=== PATIENT | male | born 1955 | race Caucasian/White ===

== ENCOUNTER 2022-09-06 07:51 | Inpatient (IN) | payer MEDICARE ==
[2022-09-06] MEDS ORDERED: SODIUM CHLORIDE 0.9% 1,000 ML IV STA (08:07)
[2022-09-06] MEDS ORDERED: SODIUM CHLORIDE 0.9% 500 ML 500 ML IV STA (08:07)
[2022-09-06] MEDS ORDERED: ONDANSETRON 4 MG/2 ML VIAL IVP STA (08:07)
[2022-09-06 08:29] LABS: Basophils % (A) 1 %; Eosinophils # (A) 0.1 k/uL (0-0.7); Eosinophils % (A) 1 %; HCT 39.6 % (39.0-53.0); HGB 14.2 gm/dL (13.0-17.5); Lymphocytes # (A) 1.5 k/uL (1.0-4.8); Lymphocytes % (A) 35 %; MCH 30.9 pg (25.0-35.0); MCHC 35.8 g/dL (31.0-37.0); MCV 86.3 fL (80.0-100.0); Mean Platelet Volume 8.5; Monocytes # (A) 0.4 k/uL (0-1.0); Monocytes % (A) 9 %; Neutrophils # (A) 2.2 k/uL (1.3-7.7); Neutrophils % (A) 51 %; Platelet Count 149 k/uL (150-450); RBC 4.59 m/uL (4.30-5.90); RDW 12.5 % (11.5-15.5); WBC 4.3 k/uL (3.8-10.6)
--- NOTE | 2022-09-06 08:52 | ED ---
General Adult HPI - General Chief complaint: Nausea/Vomiting/Diarrhea Stated complaint: Diarrhea, bodyaches Time Seen by Provider: 09/06/22 07:55 Source: patient, EMS, RN notes reviewed, old records reviewed Mode of arrival: EMS Limitations: no limitations - History of Present Illness Initial comments: This is a 67-year-old male who presents to the emergency department complaining that for the last 5-7 days he has been extremely nauseous and has a achiness in the epigastric region. Patient states he has had no vomiting. Patient states she's had 3 days of diarrhea. Patient denies any antibiotic use. Patient denies any chest pain or difficulty breathing. Patient denies any recent fever chills or cough. Patient denies any dysuria hematuria urinary frequency. Patient denies any tenderness to the abdomen on palpation. Patient denies any back pain. Patient denies lightheadedness or dizziness but he does feel extremely weak since he has not been eating for the last week and he feels as though is dehydrated. - Related Data Home Medications Medication Instructions Recorded Confirmed Escitalopram [Lexapro] 20 mg PO DAILY 09/06/22 09/06/22 Lisinopril-Hctz 20-25 mg 1 tab PO DAILY 09/06/22 09/06/22 [Zestoretic 20-25] Metoprolol Succinate [Metoprolol 25 mg PO DAILY 09/06/22 09/06/22 Succinate ER] Pregabalin 225 mg PO BID 09/06/22 09/06/22 oxyCODONE-APAP 5-325MG [Percocet 1 tab PO TID PRN 09/06/22 09/06/22 5-325 mg] Allergies Allergy/AdvReac Type Severity Reaction Status Date / Time No Known Allergies Allergy Verified 09/06/22 11:36 Review of Systems ROS Statement: Those systems with pertinent positive or pertinent negative responses have been documented in the HPI. ROS Other: All systems not noted in ROS Statement are negative. Past Medical History Past Medical History: Diabetes Mellitus, Hypertension Past Surgical History: Cholecystectomy, Hernia Repair General Exam - General Exam Comments Initial Comments: GENERAL: Patient is well-developed and well-nourished. Patient is nontoxic and well- hydrated and is in mild distress. ENT: Neck is soft and supple. No significant lymphadenopathy is noted. Oropharynx is clear. Dry mucous membranes. Neck has full range of motion without eliciting any pain. EYES: The sclera were anicteric and conjunctiva were pink and moist. Extraocular movements were intact and pupils were equal round and reactive to light. Eyelids were unremarkable. PULMONARY: Unlabored respirations. Good breath sounds bilaterally. No audible rales rhonchi or wheezing was noted. CARDIOVASCULAR: There is a regular rate and rhythm without any murmurs gallops or rubs. ABDOMEN: Minimal tenderness in the epigastric region SKIN: Skin is clear with no lesions or rashes and otherwise unremarkable. NEUROLOGIC: Patient is alert and oriented x3. Cranial nerves II through XII are grossly intact. Motor and sensory are also intact. Normal speech, volume and content. Symmetrical smile. MUSCULOSKELETAL: Normal extremities with adequate strength and full range of motion. No lower extremity swelling or edema. No calf tenderness. LYMPHATICS: No significant lymphadenopathy is noted PSYCHIATRIC: Normal psychiatric evaluation. Limitations: no limitations Course Vital Signs 09/06/22 09/06/22 09/06/22 07:55 08:18 10:00 Temperature 98.9 F Pulse Rate 62 64 62 Respiratory 22 18 18 Rate Blood Pressure 166/75 166/75 169/81 O2 Sat by Pulse 99 99 99 Oximetry 09/06/22 09/06/22 11:00 12:00 Temperature Pulse Rate 56 L 57 L Respiratory 18 20 Rate Blood Pressure 145/75 166/68 O2 Sat by Pulse 98 97 Oximetry Medical Decision Making - Medical Decision Making EKG interpreted by me. EKG shows sinus pancreatitis beats per minute GA interval 170 QRS is under 20 QT intervals 459 QTC is 452. Patient's EKG shows no ST segment elevation or depression. I interpret chest x-ray shows no acute abnormality. I interpret the computed tomography scan. There is some colitis noted on the CAT scan. I went back in and be interviewed the patient he continued to be ingest as much discomfort as he was when he arrived. I spoke with Dr. Jacques agreed to admit the patient to the patient wrote admit orders I consulted Dr. Snyder for colitis. - Lab Data Result diagrams: 09/06/22 08:15 09/06/22 08:15 Lab Results 09/06/22 09/06/22 09/06/22 Range/Units 08:15 08:15 08:15 WBC 4.3 (3.8-10.6) k/uL RBC 4.59 (4.30-5.90) m/uL Hgb 14.2 (13.0-17.5) gm/dL Hct 39.6 (39.0-53.0) % MCV 86.3 (80.0-100.0) fL MCH 30.9 (25.0-35.0) pg MCHC 35.8 (31.0-37.0) g/dL RDW 12.5 (11.5-15.5) % Plt Count 149 L (150-450) k/uL MPV 8.5 Neutrophils % 51 % Lymphocytes % 35 % Monocytes % 9 % Eosinophils % 1 % Basophils % 1 % Neutrophils # 2.2 (1.3-7.7) k/uL Lymphocytes # 1.5 (1.0-4.8) k/uL Monocytes # 0.4 (0-1.0) k/uL Eosinophils # 0.1 (0-0.7) k/uL Basophils # 0.0 (0-0.2) k/uL Sodium 141 (137-145) mmol/L Potassium 2.7 L* (3.5-5.1) mmol/L Chloride 111 H (98-107) mmol/L Carbon Dioxide 21 L (22-30) mmol/L Anion Gap 9 mmol/L BUN 6 L (9-20) mg/dL Creatinine 0.44 L (0.66-1.25) mg/dL Est GFR (CKD-EPI)AfAm >90 (>60 ml/min/1.73 sqM) Est GFR (CKD-EPI)NonAf >90 (>60 ml/min/1.73 sqM) Glucose 199 H (74-99) mg/dL Plasma Lactic Acid Kenny 1.0 (0.7-2.0) mmol/L Calcium 7.1 L (8.4-10.2) mg/dL Total Bilirubin 0.7 (0.2-1.3) mg/dL AST 16 L (17-59) U/L ALT 15 (4-49) U/L Alkaline Phosphatase 55 (38-126) U/L Troponin I (0.000-0.034) ng/mL Total Protein 5.8 L (6.3-8.2) g/dL Albumin 3.5 (3.5-5.0) g/dL Amylase 45 (30-110) U/L Lipase 160 (23-300) U/L 09/06/22 Range/Units 08:15 WBC (3.8-10.6) k/uL RBC (4.30-5.90) m/uL Hgb (13.0-17.5) gm/dL Hct (39.0-53.0) % MCV (80.0-100.0) fL MCH (25.0-35.0) pg MCHC (31.0-37.0) g/dL RDW (11.5-15.5) % Plt Count (150-450) k/uL MPV Neutrophils % % Lymphocytes % % Monocytes % % Eosinophils % % Basophils % % Neutrophils # (1.3-7.7) k/uL Lymphocytes # (1.0-4.8) k/uL Monocytes # (0-1.0) k/uL Eosinophils # (0-0.7) k/uL Basophils # (0-0.2) k/uL Sodium (137-145) mmol/L Potassium (3.5-5.1) mmol/L Chloride (98-107) mmol/L Carbon Dioxide (22-30) mmol/L Anion Gap mmol/L BUN (9-20) mg/dL Creatinine (0.66-1.25) mg/dL Est GFR (CKD-EPI)AfAm (>60 ml/min/1.73 sqM) Est GFR (CKD-EPI)NonAf (>60 ml/min/1.73 sqM) Glucose (74-99) mg/dL Plasma Lactic Acid Kenny (0.7-2.0) mmol/L Calcium (8.4-10.2) mg/dL Total Bilirubin (0.2-1.3) mg/dL AST (17-59) U/L ALT (4-49) U/L Alkaline Phosphatase (38-126) U/L Troponin I 0.013 (0.000-0.034) ng/mL Total Protein (6.3-8.2) g/dL Albumin (3.5-5.0) g/dL Amylase (30-110) U/L Lipase (23-300) U/L Disposition Clinical Impression: Acute colitis, Hypokalemia, Hypocalcemia Disposition: ADMITTED IP TO THIS HOSP Referrals: Blas Lamas DO [Primary Care Provider] - 1-2 days Time of Disposition: 12:22
[2022-09-06 08:53] LABS: Albumin 3.5 g/dL (3.5-5.0); Amylase 45 U/L (30-110); Chloride 111 mmol/L (98-107); Glucose 199 mg/dL (74-99); Total Protein 5.8 g/dL (6.3-8.2)
[2022-09-06 08:54] LABS: ALT 15 U/L (4-49); AST 16 U/L (17-59); African American GFR (CKD) >90 (>60 ml/min/1.73 sqM); Alkaline Phosphatase 55 U/L (38-126); Anion Gap 9 mmol/L; Blood Urea Nitrogen 6 mg/dL (9-20); Calcium 7.1 mg/dL (8.4-10.2); Carbon Dioxide 21 mmol/L (22-30); Lipase 160 U/L (23-300); Non-African American GFR(CKD) >90 (>60 ml/min/1.73 sqM); Sodium 141 mmol/L (137-145); Total Bilirubin 0.7 mg/dL (0.2-1.3)
--- NOTE | 2022-09-06 09:06 | XR ---
EXAMINATION TYPE: XR chest 2V DATE OF EXAM: 09/06/2022 COMPARISON: NONE HISTORY: Difficulty in breathing. TECHNIQUE: Frontal and two lateral views of the chest are obtained. FINDINGS: Slightly elevated left hemidiaphragm. There is no focal air space opacity, pleural effusion , or pneumothorax seen. The cardiac silhouette size is within normal limits. The osseous structure s are intact. IMPRESSION: No acute cardiopulmonary process.
[2022-09-06 09:24] LABS: Potassium 2.7 mmol/L (3.5-5.1)
[2022-09-06] MEDS ORDERED: POTASSIUM CHLORIDE ER 20 MEQ TAB.ER PO STA (09:48)
[2022-09-06] MEDS ORDERED: POTASSIUM CHLORIDE 20 MEQ in WATER FOR INJECTION 1 100ML.BAG IVPB STA (09:48)
[2022-09-06] MEDS ORDERED: HYDROmorphone 0.5 MG/0.5 ML SYRINGE IVP STA (10:00)
--- NOTE | 2022-09-06 10:56 | CT ---
EXAMINATION TYPE: CT abdomen pelvis w con DATE OF EXAM: 09/06/2022 COMPARISON: None. HISTORY: Abdominal pain since Monday CT DLP: 1824.5 mGycm, Automated Exposure Control for Dose Reduction was Utilized. CONTRAST: CT scan of the abdomen and pelvis is performed without oral and with IV Contrast, patient injected wi th 100 mL of Isovue 300. FINDINGS: LUNG BASES: No significant abnormality is appreciated. LIVER/GB: Gallbladder not seen and presumed surgically absent. Visualized liver is heterogeneously hy podense consistent with diffuse fatty infiltration. PANCREAS: No significant abnormality is seen. SPLEEN: No significant abnormality is seen. ADRENALS: No significant abnormality is seen. KIDNEYS: No significant abnormality is seen. BOWEL: Small to moderate size hiatal hernia is present. Suboptimal evaluation of bowel without enteri c contrast. No suspicious small or large bowel dilatation is seen. Appendix appears within normal kearney its for base of cecum. Mild to moderate wall thickening in the right and transverse colon extending i nto the left colon and sigmoid colon and rectum in contiguous fashion. No significant surrounding fat stranding. No adjacent free air. PROSTATE/SEMINAL VESICLES: No gross abnormality seen. LYMPH NODES: No greater than 1cm abdominal or pelvic lymph nodes are appreciated. OSSEOUS STRUCTURES: Moderate axial joint space loss in both hips. OTHER: Mild to moderate calcified plaque of the aorta extends into branch vessels. Small fat-containi ng umbilical hernia. Small fat-containing left inguinal hernia. IMPRESSION: Probable sbir-ko-buabxalj diffuse long segment colitis versus product of poor distention. Findings present from cecum to rectum. Differential includes infectious, ischemic, and/or inflammato ry etiologies.
[2022-09-06] MEDS ORDERED: SODIUM CHLORIDE 0.9% 1,000 ML IV ONE (12:23)
[2022-09-06] MEDS ORDERED: CALCIUM CHLORIDE 100 MG/ML 10 ML SYRINGE IVP STA (12:26)
[2022-09-06] MEDS ORDERED: ONDANSETRON 8 MG in SODIUM CHLORIDE 0.9% 50 ML IVPB PRN (12:43)
[2022-09-06] MEDS ORDERED: ONDANSETRON 4 MG in SODIUM CHLORIDE 0.9% 50 ML IVPB ONE (12:44)
--- NOTE | 2022-09-06 12:50 | P.HPIM ---
History of Present Illness This is a pleasant 67 years old male with past medical history of hypertension, depression Presents because of abdominal discomfort with nausea 7 days. Patient main problem and symptoms is severe nausea, he did not throw up but he cannot eat anything, associated with epigastric discomfort but he does not want to describe it as pain and on examination does not look tender. Patient also had a flu shot about a week ago. History is that he has diarrhea about 4 times per day, he has very poor appetite and he has not been eating anything over the last 4 days other than drinking water and gatorade drinks. He denies any blood in stool and he still is not black. He denies chest pain, no dyspnea but he has cough with congested phlegm greenish in color. He denies any urinary symptoms, no dysuria urgency, he has some mild headache but no dizziness weakness or numbness He smokes about 1.5 pack per day however he has not smoked for the last 2 weeks, he was counseled to quit and he agrees, he does not need nicotine patch, no al cohol or illicit drugs. His vitals looks stable and patient is afebrile Labs showing unremarkable CBC except for very mild low platelets 149, Sodium normal but potassium low at 2.7, creatinine 0.4. Liver enzymes not elevated. Lipase is normal. Lactic acid is normal 1.0. CT of the abdomen and pelvis with contrast: Gallbladder is surgically absent, liver showing diffuse fatty infiltration is suspected. Small to moderate size hiatal hernia no suspicion of small or large bowel dilatation. Mild to moderate wall thickening in the right and transverse colon extending into the left colon and sigmoid colon and rectum and contagious fashion. No surrounding fat stranding. Possible mild to moderate diffuse long segment colitis, from the cecum to the rectum. Chest x-ray: No acute process. EKG showing sinus bradycardia at [address]-T changes The emergency room received IV fluids, Zofran and potassium replacement. Review of Systems Review of systems CONSTITUTIONAL: No fever, no malaise, no fatigue. HEENT: No recent visual problems or hearing problems. Denied any sore throat. CARDIOVASCULAR: No orthopnea, PND, no palpitations, no syncope. PULMONARY: No shortness of breath, no cough, no hemoptysis. GASTROINTESTINAL:no vomiting, no abdominal pain. Normoactive bowel sounds. NEUROLOGICAL: No headaches, no weakness, no numbness. HEMATOLOGICAL: Denies any bleeding or petechiae. GENITOURINARY: Denies any burning micturition, frequency, or urgency. MUSCULOSKELETAL/RHEUMATOLOGICAL: Denies any joint pain, swelling, or any muscle pain. ENDOCRINE: Denies any polyuria or polydipsia. Past Medical History Past Medical History: Diabetes Mellitus, Hypertension Past Surgical History: Cholecystectomy, Hernia Repair Medications and Allergies Home Medications Medication Instructions Recorded Confirmed Type Escitalopram [Lexapro] 20 mg PO DAILY 09/06/22 09/06/22 History Lisinopril-Hctz 20-25 mg 1 tab PO DAILY 09/06/22 09/06/22 History [Zestoretic 20-25] Metoprolol Succinate [Metoprolol 25 mg PO DAILY 09/06/22 09/06/22 History Succinate ER] Pregabalin 225 mg PO BID 09/06/22 09/06/22 History oxyCODONE-APAP 5-325MG [Percocet 1 tab PO TID PRN 09/06/22 09/06/22 History 5-325 mg] Allergies Allergy/AdvReac Type Severity Reaction Status Date / Time No Known Allergies Allergy Verified 09/06/22 11:36 Physical Exam Vitals: Vital Signs Temp Pulse Resp BP Pulse Ox 09/06/22 12:00 57 L 20 166/68 97 09/06/22 11:00 56 L 18 145/75 98 09/06/22 10:00 62 18 169/81 99 09/06/22 08:18 64 18 166/75 99 09/06/22 07:55 98.9 F 62 22 166/75 99 Intake and Output 09/05/22 09/06/22 09/06/22 22:59 06:59 14:59 Other: Weight 122.47 kg GENERAL: The patient is alert and oriented x3, not in any acute distress. Well developed, well nourished. HEENT: Pupils are round and equally reacting to light. EOMI. No scleral icterus. No conjunctival pallor. Normocephalic, atraumatic. No pharyngeal erythema. No thyromegaly. CARDIOVASCULAR: S1 and S2 present. No murmurs, rubs, or gallops. PULMONARY: Chest is clear to auscultation, no wheezing or crackles. -ABDOMEN: Soft, epigastric discomfort, nondistended, normoactive bowel sounds. No palpable organomegaly. MUSCULOSKELETAL: No joint swelling or deformity. EXTREMITIES: No cyanosis, clubbing, or pedal edema. NEUROLOGICAL: Gross neurological examination did not reveal any focal deficits. SKIN: No rashes. no petechiae. Results CBC & Chem 7: 09/06/22 08:15 09/06/22 08:15 Labs: Abnormal Lab Results - Last 24 Hours (Table) 09/06/22 09/06/22 Range/Units 08:15 08:15 Plt Count 149 L (150-450) k/uL Potassium 2.7 L* (3.5-5.1) mmol/L Chloride 111 H (98-107) mmol/L Carbon Dioxide 21 L (22-30) mmol/L BUN 6 L (9-20) mg/dL Creatinine 0.44 L (0.66-1.25) mg/dL Glucose 199 H (74-99) mg/dL Calcium 7.1 L (8.4-10.2) mg/dL AST 16 L (17-59) U/L Total Protein 5.8 L (6.3-8.2) g/dL Assessment and Plan Assessment: Mild to moderate diffuse colitis from the cecum to the rectum, suspicious for acute gastroenteritis Recurrent nausea without vomiting, with diarrhea secondary to above Hypertension History of depression, not an active issue Plan: Continue with IV hydration Continue with Zofran as needed and symptomatic treatment Bowel rest GI team consult Hold hydrochlorothiazide for hypokalemia
[2022-09-06] MEDS ORDERED: Magnesium Replacement Protocol 1 EACH MISC MISCELLANE PRN (12:53)
[2022-09-06] MEDS ORDERED: Potassium Replacement Protocol 1 EACH MISC MISCELLANE PRN (12:53)
[2022-09-06] MEDS ORDERED: ONDANSETRON 4 MG/2 ML VIAL IVP ONE (13:00)
[2022-09-06] MEDS: PANTOPRAZOLE 40 MG/10 ML VIAL IVP SCH (13:30)
[2022-09-06] MEDS: DEXTROSE 5%-0.9% NACL 1,000 ML IV SCH (14:00)
--- NOTE | 2022-09-06 16:07 | P.CONS ---
History of Present Illness - Reason for Consult Consult date: 09/06/22 severe nausea Requesting physician: Aldo E Sheet - Chief Complaint nausea, diarrhea - History of Present Illness This is a pleasant 67-year-old male who presented to the emergency department today with complaints of nausea and diarrhea for the last 5 days duration. Mary ent states he feels as though he is dehydrated. He is only drinking one bottle of Gatorade today. He is having loose nonbloody bowel movements up to 2-3 a day. Patient states he had none today. He has nausea but no vomiting. He states he has had chills and cold sweats at home. Also states that his was recently ill at home prior to him with cold sweats body aches fatigue and decreased appetite. Patient also is stating that he has a cough with a green sputum. Patient is afebrile. Patient had a CT of the abdomen and pelvis with contrast that showed probable mild to moderate diffuse long segment colitis versus product of poor distention. Findings present from cecum to rectum. Dif ferential includes infectious, ischemic and/or inflammatory etiologies. labs WBC 4.3 hemoglobin 14 hematocrit 39 platelet count 149,000 sodium 141 potassium 2.7 BUN 6 creatinine 0.4 glucose 199 total bilirubin 0.7 AST 16 ALT 15 alkaline phosphatase 55 amylase 45 lipase 160 Review of Systems REVIEW OF SYSTEMS: CARDIOPULMONARY: No chest pain or shortness of breath. cough with green sputum. Gastrointestinal: No abdominal pain or cramping. Patient states just overall d oes not feel well, constant nausea without vomiting. diarrhea 5 days. No hematemesis, coffee-ground emesis. No rectal bleeding, or melena. GENITOURINARY: No dysuria or hematuria. MUSCULOSKELETAL: Reports normal range of motion. SKIN: No rashes. No jaundice. ENDOCRINE: No chills, fevers. No excessive weight gain or loss. No polydipsia or polyuria. PSYCHIATRIC: Unremarkable. NEUROLOGY: No change in mental status. Denies dizziness, headache. ENT: Vision unremarkable. CONSTITUTIONAL: No recent weight loss. No fever, chills, night sweats. Past Medical History Past Medical History: Diabetes Mellitus, Hypertension Past Surgical History: Cholecystectomy, Hernia Repair Medications and Allergies Home Medications Medication Instructions Recorded Confirmed Type Escitalopram [Lexapro] 20 mg PO DAILY 09/06/22 09/06/22 History Lisinopril-Hctz 20-25 mg 1 tab PO DAILY 09/06/22 09/06/22 History [Zestoretic 20-25] Metoprolol Succinate [Metoprolol 25 mg PO DAILY 09/06/22 09/06/22 History Succinate ER] Pregabalin 225 mg PO BID 09/06/22 09/06/22 History oxyCODONE-APAP 5-325MG [Percocet 1 tab PO TID PRN 09/06/22 09/06/22 History 5-325 mg] Allergies Allergy/AdvReac Type Severity Reaction Status Date / Time No Known Allergies Allergy Verified 09/06/22 11:36 Physical Exam Vitals: Vital Signs Temp Pulse Resp BP Pulse Ox 09/06/22 12:00 57 L 20 166/68 97 09/06/22 11:00 56 L 18 145/75 98 09/06/22 10:00 62 18 169/81 99 09/06/22 08:18 64 18 166/75 99 09/06/22 07:55 98.9 F 62 22 166/75 99 Intake and Output 09/05/22 09/06/22 09/06/22 22:59 06:59 14:59 Other: Weight 122.47 kg General appearance: The patient is alert, oriented, appears in no acute distress. HET: Head is normocephalic and atraumatic. Conjunctiva pink. Sclera anicteric. Neck: Supple without lymphadenopathy. Trachea midline. Heart: S1 S2. Regular rate and rhythm. Lungs: Clear to auscultation. Abdomen: Soft, nontender, nondistended with bowel sounds. No guarding or rigidity. Skin: No rashes. No jaundice. Extremities: Normal skin color and turgor. No pedal edema. Neurological: No focal deficits. Alert and oriented x3. Results CBC & Chem 7: 09/06/22 08:15 09/06/22 08:15 Labs: Abnormal Lab Results - Last 24 Hours (Table) 09/06/22 09/06/22 Range/Units 08:15 08:15 Plt Count 149 L (150-450) k/uL Potassium 2.7 L* (3.5-5.1) mmol/L Chloride 111 H (98-107) mmol/L Carbon Dioxide 21 L (22-30) mmol/L BUN 6 L (9-20) mg/dL Creatinine 0.44 L (0.66-1.25) mg/dL Glucose 199 H (74-99) mg/dL Calcium 7.1 L (8.4-10.2) mg/dL AST 16 L (17-59) U/L Total Protein 5.8 L (6.3-8.2) g/dL Assessment and Plan (1) Gastroenteritis Narrative/Plan: XT 7-year-old male who presented with severe nausea, no vomiting and diarrhea for last 5 days duration with increased weakness and fatigue. Patient with decreased appetite, diarrhea 3-4 times a day nonbloody. Patient states he had not been taking in much liquids only about a bottle of Gatorade today. Patient was noted to have a potassium of 2.7 on admission which was replaced. Patient's was also sick about one week prior with similar symptoms other than the diarrhea. Patient also stating that he has cough with sputum. Patient was not initially tested for excuse me Rice virus however later patient was tested and is now coming back as positive PCR. Likelihood diarrhea and nausea is related to COVID-19 virus, patient likely has a viral gastroenteritis. Continue IV hydration, repeat potassium replacement, patient can have clear liquid diet. Antiemetics as needed. Current Visit: Yes Status: Acute Code(s): K52.9 - NONINFECTIVE GASTROENTERITIS AND COLITIS, UNSPECIFIED SNOMED Code(s): 39940098 (2) Diarrhea Current Visit: Yes Status: Acute Code(s): R19.7 - DIARRHEA, UNSPECIFIED SNOMED Code(s): 04064083 (3) Coronavirus infection Current Visit: Yes Status: Acute Code(s): B34.2 - CORONAVIRUS INFECTION, UNSPECIFIED SNOMED Code(s): 642301395 (4) Hypokalemia Current Visit: Yes Status: Acute Code(s): E87.6 - HYPOKALEMIA SNOMED Code(s): 18086910 Plan: 1. Continue symptomatic and supportive care 2. Antiemetics as needed 3. C. diff stool test ordered 4. Stool cultures ordered 5. Patient may have clear liquid diet 6. Replace potassium per protocol 7. IV hydration 8. No plans on endoscopic evaluation Thank you for this consultation, we will continue to follow. Dr. Rita Snyder I agree with the dictator's note, documented as a scribe by Zoie Ambriz
[2022-09-06] MEDS ORDERED: ONDANSETRON 4 MG/2 ML VIAL IVP PRN (17:00)
[2022-09-06] MEDS ORDERED: hydrALAZINE HCL 25 MG TAB PO PRN (18:10)
[2022-09-06 19:07] LABS: Magnesium 1.8 mg/dL (1.6-2.3); Potassium 3.2 mmol/L (3.5-5.1)
[2022-09-06] MEDS: PREGABALIN 75 MG CAP PO SCH (21:39)
[2022-09-06] MEDS: HEPARIN SODIUM,PORCINE/PF 5,000 UNIT/0.5 ML SYRINGE SQ SCH (21:39)
[2022-09-06] MEDS: oxyCODONE-APAP 5-325MG 1 EACH TAB PO PRN (21:42)
[2022-09-07] MEDS: DEXTROSE 5%-0.9% NACL 1,000 ML IV SCH (01:40)
[2022-09-07] MEDS ORDERED: DEXTROSE 50% SYRINGE 50 ML IVP PRN ×2 (06:31)
[2022-09-07] MEDS ORDERED: metFORMIN 500 MG TAB PO SCH (07:30)
[2022-09-07 07:52] LABS: Glucose,Whole Blood 174 mg/dL (70-110)
[2022-09-07] MEDS: PANTOPRAZOLE 40 MG/10 ML VIAL IVP SCH (08:25)
[2022-09-07] MEDS: HEPARIN SODIUM,PORCINE/PF 5,000 UNIT/0.5 ML SYRINGE SQ SCH ×2 (08:25→20:22)
[2022-09-07] MEDS: PREGABALIN 75 MG CAP PO SCH ×2 (08:26→20:21)
[2022-09-07] MEDS: METOPROLOL SUCCINATE (ER) 25 MG TAB.ER.24H PO SCH (08:26)
[2022-09-07] MEDS: INSULIN ASPART (NovoLOG) 100 UNIT/ML VIAL SQ SCH ×4 (08:26→21:08)
[2022-09-07] MEDS: amLODIPine 5 MG TAB PO SCH (08:26)
[2022-09-07 08:42] LABS: Basophils # (A) 0.03 X 10*3/uL (0.00-0.10); Basophils % (A) 0.5 %; Eosinophils # (A) 0.04 X 10*3/uL (0.04-0.35); Eosinophils % (A) 0.7 %; HCT 38.4 % (39.6-50.0); HGB 13.5 g/dL (13.0-17.0); Immature Grans, Automated 0.7 %; Lymphocytes # (A) 2.15 X 10*3/uL (0.90-5.00); Lymphocytes % (A) 39.2 %; MCH 30.1 pg (27.0-32.0); MCHC 35.2 g/dL (32.0-37.0); MCV 85.7 fL (80.0-97.0); Mean Platelet Volume 11.3 fL (9.5-12.2); Monocytes # (A) 0.65 X 10*3/uL (0.20-1.00); Monocytes % (A) 11.8 %; NRBC Per 100 WBC 0 /100 WBCS (0.0-0.0); Neutrophils # (A) 2.58 X 10*3/uL (1.80-7.70); Neutrophils % (A) 47.1 %; Platelet Count 174 X 10*3/uL (140-440); RBC 4.48 X 10*6/uL (4.40-5.60); RDW 12.7 % (11.5-14.5); WBC 5.49 X 10*3/uL (4.50-10.00)
[2022-09-07] MEDS ORDERED: ESCITALOPRAM 20 MG TAB PO SCH (09:00)
[2022-09-07] MEDS ORDERED: lisinopriL 20 MG TAB PO SCH (09:00)
[2022-09-07 09:02] LABS: Magnesium 1.7 mg/dL (1.5-2.4)
[2022-09-07 10:05] LABS: African American GFR (CKD) 118.9 (60.0-200.0); Anion Gap 12.1 mmol/L (10.00-18.00); BUN/Creat Ratio 6.67 Ratio (12.00-20.00); Calcium 8.2 mg/dL (8.7-10.3); Carbon Dioxide 22.9 mmol/L (20.0-27.5); Non-African American GFR(CKD) 102.6 (60.0-200.0); Potassium 2.7 mmol/L (3.5-5.5)
[2022-09-07] MEDS ORDERED: MAGNESIUM SULFATE-D5W PMX 1 GM in DEXTROSE/WATER 1 100ML.BAG IVPB ONE (10:12)
[2022-09-07] MEDS: POTASSIUM CHLORIDE ER 20 MEQ TAB.ER PO SCH ×5 (10:53→20:21)
[2022-09-07] MEDS ORDERED: lisinopriL 20 MG TAB PO STA (11:30)
--- NOTE | 2022-09-07 11:37 | P.PN ---
Subjective This is a pleasant 67 years old male with past medical history of hypertension, depression Presents because of abdominal discomfort with nausea 7 days. Patient main problem and symptoms is severe nausea, he did not throw up but he cannot eat anything, associated with epigastric discomfort but he does not want to describe it as pain and on examination does not look tender. Patient also had a flu shot about a week ago. History is that he has diarrhea about 4 times per day, he has very poor appetite and he has not been eating anything over the last 4 days other than drinking water and gatorade drinks. He denies any blood in stool and he still is not black. He denies chest pain, no dyspnea but he has cough with congested phlegm greenish in color. He denies any urinary symptoms, no dysuria urgency, he has some mild headache but no dizziness weakness or numbness He smokes about 1.5 pack per day however he has not smoked for the last 2 weeks, he was counseled to quit and he agrees, he does not need nicotine patch, no alcohol or illicit drugs. His vitals looks stable and patient is afebrile Labs showing unremarkable CBC except for very mild low platelets 149, Sodium normal but potassium low at 2.7, creatinine 0.4. Liver enzymes not elevated. Lipase is normal. Lactic acid is normal 1.0. CT of the abdomen and pelvis with contrast: Gallbladder is surgically absent, liver showing diffuse fatty infiltration is suspected. Small to moderate size hiatal hernia no suspicion of small or large bowel dilatation. Mild to moderate wall thickening in the right and transverse colon extending into the left colon and sigmoid colon and rectum and contagious fashion. No surrounding fat stranding. Possible mild to moderate diffuse long segment colitis, from the cecum to the rectum. Chest x-ray: No acute process. EKG showing sinus bradycardia at [address]-T changes The emergency room received IV fluids, Zofran and potassium replacement. 09/07/2022 Patient has little nausea this morning with no vomiting, his abdomen is soft and nontender today. He has some epigastric discomfort yesterday which is is down today. He still had diarrhea overnight, related to his colic gastroenteritis. He is currently on low fiber diet, low-fat diet and we will keep monitoring. Cholestyramine is added. His hemoglobin is A1c and patient informed about his new diagnosis of diabetes. However his on liquid diet, continue with insulin sliding scale. Dietary consults and caser up consult his hypokalemia and hypomagnesemia replaced per protocol Blood pressure elevated, we'll increase his lisinopril 40 mg daily which will help also with hypokalemia. Hydrochlorothiazide is discontinued on admission Objective - Vital Signs Vital signs: Vital Signs Temp 98.9 F 09/06/22 07:55 Pulse 51 L 09/07/22 03:00 Resp 16 09/07/22 03:00 BP 184/86 09/07/22 03:00 Pulse Ox 98 09/07/22 03:00 FiO2 Intake & Output 09/06/22 09/07/22 09/07/22 18:59 06:59 18:59 Weight 122.47 kg 122.47 kg - Exam GENERAL: The patient is alert and oriented x3, not in any acute distress. Well developed, well nourished. HEENT: Pupils are round and equally reacting to light. EOMI. No scleral icterus. No conjunctival pallor. Normocephalic, atraumatic. No pharyngeal erythema. No thyromegaly. CARDIOVASCULAR: S1 and S2 present. No murmurs, rubs, or gallops. PULMONARY: Chest is clear to auscultation, no wheezing or crackles. ABDOMEN: Soft, nontender, nondistended, normoactive bowel sounds. No palpable organomegaly. MUSCULOSKELETAL: No joint swelling or deformity. EXTREMITIES: No cyanosis, clubbing, or pedal edema. NEUROLOGICAL: Gross neurological examination did not reveal any focal deficits. SKIN: No rashes. no petechiae. - Labs CBC & Chem 7: 09/07/22 06:16 09/07/22 06:16 Labs: Abnormal Lab Results - Last 24 Hours (Table) 09/06/22 09/06/22 09/06/22 Range/Units 15:20 18:27 18:27 Hct (39.6-50.0) % Potassium 3.2 L (3.5-5.1) mmol/L BUN (9.0-27.0) mg/dL BUN/Creatinine Ratio (12.00-20.00) Ratio Glucose (70-110) mg/dL POC Glucose (mg/dL) (70-110) mg/dL Hemoglobin A1c 10.0 H (0.0-6.0) % Calcium (8.7-10.3) mg/dL Coronavirus (PCR) Detected A (Not Detectd) 09/07/22 09/07/22 09/07/22 Range/Units 06:16 06:16 07:48 Hct 38.4 L (39.6-50.0) % Potassium 2.7 L* (3.5-5.1) mmol/L BUN 4.0 L (9.0-27.0) mg/dL BUN/Creatinine Ratio 6.67 L (12.00-20.00) Ratio Glucose 181 H (70-110) mg/dL POC Glucose (mg/dL) 174 H (70-110) mg/dL Hemoglobin A1c (0.0-6.0) % Calcium 8.2 L (8.7-10.3) mg/dL Coronavirus (PCR) (Not Detectd) Microbiology - Last 24 Hours (Table) 09/06/22 22:10 Stool Culture - Preliminary Stool Assessment and Plan Assessment: Mild to moderate diffuse colitis from the cecum to the rectum, suspicious for acute gastroenteritis, secondary to covid infection Recurrent nausea without vomiting, with diarrhea secondary to above New-onset diabetes Hypertension History of depression, not an active issue Plan: Continue with IV hydration Continue with Zofran as needed and symptomatic treatment Started as tolerated increase lisinopril to 20 mg Patient informed about his new diagnosis of diabetes, that Mika consult caser up consult GI team consult Hold hydrochlorothiazide for hypokalemia
[2022-09-07 11:51] LABS: Glucose,Whole Blood 240 mg/dL (70-110)
--- NOTE | 2022-09-07 12:22 | P.PN ---
Subjective Progress Note Date: 09/07/22 Principal diagnosis: Gastroenteritis This is a pleasant 67-year-old male who presented to the emergency department today with complaints of nausea and diarrhea for the last 5 days duration. Patient states he feels as though he is dehydrated. He is only drinking one bottle of Gatorade today. He is having loose nonbloody bowel movements up to 2- 3 a day. Patient states he had none today. He has nausea but no vomiting. He states he has had chills and cold sweats at home. Also states that his was recently ill at home prior to him with cold sweats body aches fatigue and decreased appetite. Patient also is stating that he has a cough with a green sputum. Patient is afebrile. Patient had a CT of the abdomen and pelvis with contrast that showed probable mild to moderate diffuse long segment colitis versus product of poor distention. Findings present from cecum to rectum. Differential includes infectious, ischemic and/or inflammatory etiologies. 09/07/2022. Patient seen and examined his follow-up. States diarrhea has improved he has not had any episodes since yesterday and only one yesterday. Nausea has also improved. He has been tolerating his clear liquid diet and would like to advance. No abdominal pain. Patient did come back positive for COVID-19 infection. Symptoms likely RELATED to underlying virus. Stool C. diff negative, stool cultures pending. The patient is still hypokalemic with a potassium of 2.7 being replaced per protocol. Objective - Vital Signs Vital signs: Vital Signs Temp 98.9 F 09/06/22 07:55 Pulse 62 09/07/22 11:57 Resp 16 09/07/22 03:00 BP 146/68 09/07/22 11:57 Pulse Ox 98 09/07/22 03:00 FiO2 Intake & Output 09/06/22 09/07/22 09/07/22 18:59 06:59 18:59 Weight 122.47 kg 122.47 kg - Exam General appearance: The patient is alert, oriented, appears in no acute distress. HET: Head is normocephalic and atraumatic. Conjunctiva pink. Sclera anicteric. Neck: Supple without lymphadenopathy. Abdomen: Soft, nontender, nondistended with bowel sounds. No guarding or ri gidity. Extremities: Normal skin color and turgor. No pedal edema Skin: No rashes, no jaundice Neurological: No focal deficits. Alert and oriented. - Labs CBC & Chem 7: 09/07/22 06:16 09/07/22 06:16 Labs: Abnormal Lab Results - Last 24 Hours (Table) 09/06/22 09/06/22 09/06/22 Range/Units 15:20 18:27 18:27 Hct (39.6-50.0) % Potassium 3.2 L (3.5-5.1) mmol/L BUN (9.0-27.0) mg/dL BUN/Creatinine Ratio (12.00-20.00) Ratio Glucose (70-110) mg/dL POC Glucose (mg/dL) (70-110) mg/dL Hemoglobin A1c 10.0 H (0.0-6.0) % Calcium (8.7-10.3) mg/dL Coronavirus (PCR) Detected A (Not Detectd) 09/07/22 09/07/22 09/07/22 Range/Units 06:16 06:16 07:48 Hct 38.4 L (39.6-50.0) % Potassium 2.7 L* (3.5-5.1) mmol/L BUN 4.0 L (9.0-27.0) mg/dL BUN/Creatinine Ratio 6.67 L (12.00-20.00) Ratio Glucose 181 H (70-110) mg/dL POC Glucose (mg/dL) 174 H (70-110) mg/dL Hemoglobin A1c (0.0-6.0) % Calcium 8.2 L (8.7-10.3) mg/dL Coronavirus (PCR) (Not Detectd) 09/07/22 Range/Units 11:50 Hct (39.6-50.0) % Potassium (3.5-5.1) mmol/L BUN (9.0-27.0) mg/dL BUN/Creatinine Ratio (12.00-20.00) Ratio Glucose (70-110) mg/dL POC Glucose (mg/dL) 240 H (70-110) mg/dL Hemoglobin A1c (0.0-6.0) % Calcium (8.7-10.3) mg/dL Coronavirus (PCR) (Not Detectd) Microbiology - Last 24 Hours (Table) 09/06/22 22:10 Stool Culture - Preliminary Stool Assessment and Plan (1) Gastroenteritis Narrative/Plan: XT 7-year-old male who presented with severe nausea, no vomiting and diarrhea for last 5 days duration with increased weakness and fatigue. Patient with decreased appetite, diarrhea 3-4 times a day nonbloody. Patient states he had not been taking in much liquids only about a bottle of Gatorade today. Patient was noted to have a potassium of 2.7 on admission which was replaced. Patient's was also sick about one week prior with similar symptoms other than the diarrhea. Patient also stating that he has cough with sputum. Patient was not initially tested for excuse me Rice virus however later patient was tested and is now coming back as positive PCR. Likelihood diarrhea and nausea is related to COVID-19 virus, patient likely has a viral gastroenteritis. Continue IV hydration, repeat potassium replacement, patient can have clear liquid diet. Antiemetics as needed. Current Visit: Yes Status: Acute Code(s): K52.9 - NONINFECTIVE GASTROENTERITIS AND COLITIS, UNSPECIFIED SNOMED Code(s): 37602282 (2) Diarrhea Narrative/Plan: Improved Current Visit: Yes Status: Acute Code(s): R19.7 - DIARRHEA, UNSPECIFIED SNOMED Code(s): 70288173 (3) Coronavirus infection Current Visit: Yes Status: Acute Code(s): B34.2 - CORONAVIRUS INFECTION, UNSPECIFIED SNOMED Code(s): 241405608 (4) Hypokalemia Current Visit: Yes Status: Acute Code(s): E87.6 - HYPOKALEMIA SNOMED Code(s): 10847703 Plan: 1. Continue symptomatic and supportive care 2. Antiemetics as needed 3. Diet as tolerated 4. Stool cultures ordered 5. Replace potassium per protocol 6. No plans on endoscopic evaluation Thank you for this consultation, we will continue to follow. Dr. Rita Snyder I agree with the dictator's note, documented as a scribe by Zoie Pond.
[2022-09-07 15:35] LABS: Glucose,Whole Blood 217 mg/dL (70-110)
[2022-09-07] MEDS ORDERED: diphenhydrAMINE 25 MG CAP PO PRN (16:28)
[2022-09-07] MEDS: SODIUM CHLORIDE 0.9% 1,000 ML IV SCH (16:52)
[2022-09-07 17:26] LABS: Magnesium 1.9 mg/dL (1.6-2.3); Potassium 3.3 mmol/L (3.5-5.1)
[2022-09-07 18:38] LABS: Glucose,Whole Blood 230 mg/dL (70-110)
[2022-09-07] MEDS: oxyCODONE-APAP 5-325MG 1 EACH TAB PO PRN (20:21)
[2022-09-07] MEDS: CHOLESTYRAMINE (WITH SUGAR) 4 GM PACKET PO SCH (20:22)
[2022-09-08 06:04] LABS: Glucose,Whole Blood 221 mg/dL (70-110)
[2022-09-08] MEDS: SODIUM CHLORIDE 0.9% 1,000 ML IV SCH ×2 (06:28→11:43)
[2022-09-08] MEDS: INSULIN ASPART (NovoLOG) 100 UNIT/ML VIAL SQ SCH ×2 (06:35→11:42)
[2022-09-08] MEDS ORDERED: lisinopriL 20 MG TAB PO SCH (09:00)
[2022-09-08] MEDS: METOPROLOL SUCCINATE (ER) 25 MG TAB.ER.24H PO SCH (09:09)
[2022-09-08] MEDS: PANTOPRAZOLE 40 MG/10 ML VIAL IVP SCH (09:10)
[2022-09-08] MEDS: PREGABALIN 75 MG CAP PO SCH (09:10)
[2022-09-08] MEDS: amLODIPine 5 MG TAB PO SCH (09:10)
[2022-09-08] MEDS: HEPARIN SODIUM,PORCINE/PF 5,000 UNIT/0.5 ML SYRINGE SQ SCH (09:10)
[2022-09-08] MEDS: CHOLESTYRAMINE (WITH SUGAR) 4 GM PACKET PO SCH (09:11)
[2022-09-08] MEDS ORDERED: LINAGLIPTIN 5 MG TABLET PO SCH (11:00)
[2022-09-08 11:01] LABS: African American GFR (CKD) 118.9 (60.0-200.0); Anion Gap 11.5 mmol/L (10.00-18.00); BUN/Creat Ratio 6.17 Ratio (12.00-20.00); Blood Urea Nitrogen 3.7 mg/dL (9.0-27.0); Calcium 8.4 mg/dL (8.7-10.3); Carbon Dioxide 25.5 mmol/L (20.0-27.5); Non-African American GFR(CKD) 102.6 (60.0-200.0); Potassium 3.2 mmol/L (3.5-5.5)
[2022-09-08 11:10] VITALS: RESP 18
[2022-09-08] MEDS ORDERED: POTASSIUM CHLORIDE ER 20 MEQ TAB.ER PO STA (11:15)
--- NOTE | 2022-09-08 11:17 | P.PN ---
Subjective Progress Note Date: 09/08/22 Principal diagnosis: Gastroenteritis This is a pleasant 67-year-old male who presented to the emergency department today with complaints of nausea and diarrhea for the last 5 days duration. Patient states he feels as though he is dehydrated. He is only drinking one bottle of Gatorade today. He is having loose nonbloody bowel movements up to 2- 3 a day. Patient states he had none today. He has nausea but no vomiting. He states he has had chills and cold sweats at home. Also states that his was recently ill at home prior to him with cold sweats body aches fatigue and decreased appetite. Patient also is stating that he has a cough with a green sputum. Patient is afebrile. Patient had a CT of the abdomen and pelvis with contrast that showed probable mild to moderate diffuse long segment colitis versus product of poor distention. Findings present from cecum to rectum. Differential includes infectious, ischemic and/or inflammatory etiologies. 09/07/2022. Patient seen and examined his follow-up. States diarrhea has improved he has not had any episodes since yesterday and only one yesterday. Nausea has also improved. He has been tolerating his clear liquid diet and would like to advance. No abdominal pain. Patient did come back positive for COVID-19 infection. Symptoms likely RELATED to underlying virus. Stool C. diff negative, stool cultures pending. The patient is still hypokalemic with a potassium of 2.7 being replaced per protocol. 09/08/2022. Patient seen and examined as a follow-up for nausea and diarrhea. Patient was diagnosed with COVID-19 infection. Symptoms have improved. He's not had any bowel movements since Monday. He is eating a regular diet without any nausea or vomiting. He's been afebrile. Patient states he's feeling much better. Objective - Vital Signs Vital signs: Vital Signs Temp 98.6 F 09/08/22 10:00 Pulse 58 L 09/08/22 10:00 Resp 18 09/08/22 10:00 BP 168/72 09/08/22 10:00 Pulse Ox 99 09/08/22 10:00 FiO2 Intake & Output 09/07/22 09/08/22 09/08/22 18:59 06:59 18:59 Intake Total 480 Output Total 0 Balance 0 480 Weight 122.47 kg Intake: Oral 480 Output: Urine 0 Other: # Voids 3 1 - Exam General appearance: The patient is alert, oriented, appears in no acute distress. HET: Head is normocephalic and atraumatic. Conjunctiva pink. Sclera anicteric. Neck: Supple without lymphadenopathy. Abdomen: Soft, nontender, nondistended with bowel sounds. No guarding or rigidity. Extremities: Normal skin color and turgor. No pedal edema Skin: No rashes, no jaundice Neurological: No focal deficits. Alert and oriented. - Labs CBC & Chem 7: 09/07/22 06:16 09/08/22 06:53 Labs: Abnormal Lab Results - Last 24 Hours (Table) 09/07/22 09/07/22 09/07/22 Range/Units 11:50 15:34 16:53 Potassium 3.3 L (3.5-5.1) mmol/L BUN (9.0-27.0) mg/dL BUN/Creatinine Ratio (12.00-20.00) Ratio Glucose (70-110) mg/dL POC Glucose (mg/dL) 240 H 217 H (70-110) mg/dL Calcium (8.7-10.3) mg/dL 09/07/22 09/08/22 09/08/22 Range/Units 18:36 06:02 06:53 Potassium 3.2 L (3.5-5.1) mmol/L BUN 3.7 L (9.0-27.0) mg/dL BUN/Creatinine Ratio 6.17 L (12.00-20.00) Ratio Glucose 209 H (70-110) mg/dL POC Glucose (mg/dL) 230 H 221 H (70-110) mg/dL Calcium 8.4 L (8.7-10.3) mg/dL Microbiology - Last 24 Hours (Table) 09/06/22 22:10 Stool Culture - Preliminary Stool Assessment and Plan (1) Gastroenteritis Narrative/Plan: XT 7-year-old male who presented with severe nausea, no vomiting and diarrhea for last 5 days duration with increased weakness and fatigue. Patient with decreased appetite, diarrhea 3-4 times a day nonbloody. Patient states he had not been taking in much liquids only about a bottle of Gatorade today. Patient was noted to have a potassium of 2.7 on admission which was replaced. Patient's was also sick about one week prior with similar symptoms other than the diarrhea. Patient also stating that he has cough with sputum. Patient was not initially tested for excuse me Rice virus however later patient was tested and is now coming back as positive PCR. Likelihood diarrhea and nausea is related to COVID-19 virus, patient likely has a viral gastroenteritis. Continue IV hydration, repeat potassium replacement, patient can have clear liquid diet. Antiemetics as needed. Current Visit: Yes Status: Acute Code(s): K52.9 - NONINFECTIVE GASTROENTERITIS AND COLITIS, UNSPECIFIED SNOMED Code(s): 22308866 (2) Diarrhea Narrative/Plan: Improved Current Visit: Yes Status: Acute Code(s): R19.7 - DIARRHEA, UNSPECIFIED SNOMED Code(s): 28190921 (3) Coronavirus infection Current Visit: Yes Status: Acute Code(s): B34.2 - CORONAVIRUS INFECTION, UNSPECIFIED SNOMED Code(s): 407350481 (4) Hypokalemia Current Visit: Yes Status: Acute Code(s): E87.6 - HYPOKALEMIA SNOMED Code(s): 54178670 Plan: 1. Continue symptomatic and supportive care 2. Antiemetics as needed 3. Diet as tolerated 4. Stool cultures pending 5. Replace potassium per protocol 6. No plans on endoscopic evaluation Thank you for this consultation, patient is cleared for discharge from gastroenterology once otherwise medically stable. We will sign off at this time. Dr. Rita Snyder I agree with the dictator's note, documented as a scribe by Zoie Pond.
[2022-09-08 11:24] LABS: Glucose,Whole Blood 209 mg/dL (70-110)
[2022-09-08 11:33] VITALS: BMI 32.8
[2022-09-08 13:53] VITALS: BP 158/76; PULSE 53; TEMP 98.7
--- NOTE | 2022-09-08 23:51 | P.DS ---
Providers Date of admission: 09/06/22 12:23 Attending physician: Aldo Murdock MD Consults: 09/06/22 12:46 Consult Physician Urgent Consulting Provider: Madeleine Snyder Consult Reason/Comments: sever nausea Do you want consulting provider notified?: Yes Primary care physician: Blas Lamas Hospital Course: Diagnoses: Mild to moderate diffuse colitis from the cecum to the rectum, suspicious for acute gastroenteritis, secondary to covid infection (acute covid gastroenteritis) Recurrent nausea without vomiting, with diarrhea secondary to above Covid infection without pneumonia or hypoxia New-onset diabetes, patient informed Hypertension History of depression, not an active issue Hospital course: This is a pleasant 67 years old male with past medical history of hypertension, depression Presents because of abdominal discomfort with nausea 7 days. Patient found to have diffuse colitis on CAT scan, he was thought secondary to above and infection which test came back positive GI team evaluated the patient and followed closely. His symptoms resolved, he ate well his diet, no more nausea vomiting, he rates his abdominal pain as 0/10 as he'd telling me. Patient denies any diarrhea since he came to the hospital. I discussed this with GI team who cleared for discharge. Hemoglobin A1c was elevated 10% indicating for new-onset diabetes, patient informed and agreed. Linagliptin was started and pt tolerated that well. Blood pressure control down to 158/76 at increased the dose of lisinopril, hold hydrochlorothiazide upon discharge, Continue with metoprolol, patient informed with this recommendation and he agrees Problems and management plan were discussed with the patient and he verbalized understanding and acceptance. Patient informed to hold hydrochlorothiazide upon discharge Patient was found stable and can be discharged home in guarded prognosis however he needs follow-up as an outpatient. Patient was instructed to follow up with PCPDr. Lamas within one week and patient agrees Patient was instructed to follow up with Dr. Snyder in 2 weeks and he agrees and Dr. Ahn in 2-4 weeks for his diabetes and he agrees as well Physical exam Gen: patient is a AAOx3, no distress CVS: S1-S2, RRR, no murmur Lungs: B/L CTA, no wheezing Abdomen: soft, no distention, no tenderness, positive bowel sounds Extremity: no leg edema or induration Time spent more than 35 minutes Plan - Discharge Summary Discharge Rx Participant: No New Discharge Prescriptions: New RX: Omeprazole 20 mg PO BID 30 Days #60 tab RX: amLODIPine [Norvasc] 5 mg PO DAILY #30 tab RX: Cholestyramine (with Sugar) [Questran Packet] 4 gm PO DAILY 5 Days #5 packet RX: lisinopriL [Zestril] 40 mg PO DAILY #60 tab RX: Linagliptin [Tradjenta] 5 mg PO DAILY #30 tab Potassium Chloride [Potassium Chloride ER] 10 meq PO DAILY 3 Days #3 cap Continue RX: Pregabalin 225 mg PO BID RX: Escitalopram [Lexapro] 20 mg PO DAILY RX: oxyCODONE-APAP 5-325MG [Percocet 5-325 mg] 1 tab PO TID PRN PRN Reason: Pain RX: Metoprolol Succinate [Metoprolol Succinate ER] 25 mg PO DAILY #30 tab Discontinued Lisinopril-Hctz 20-25 mg [Zestoretic 20-25] 1 tab PO DAILY Discharge Medication List RX: Escitalopram [Lexapro] 20 mg PO DAILY 09/06/22 [History] RX: Pregabalin 225 mg PO BID 09/06/22 [History] RX: oxyCODONE-APAP 5-325MG [Percocet 5-325 mg] 1 tab PO TID PRN 09/06/22 [History] Potassium Chloride [Potassium Chloride ER] 10 meq PO DAILY 3 Days #3 cap 1 11/09/21 [Rx] RX: Cholestyramine (with Sugar) [Questran Packet] 4 gm PO DAILY 5 Days #5 packet 09/08/22 [Rx] RX: Linagliptin [Tradjenta] 5 mg PO DAILY #30 tab 09/08/22 [Rx] RX: Metoprolol Succinate [Metoprolol Succinate ER] 25 mg PO DAILY #30 tab 09/08/22 [Rx] RX: Omeprazole 20 mg PO BID 30 Days #60 tab 09/08/22 [Rx] RX: amLODIPine [Norvasc] 5 mg PO DAILY #30 tab 09/08/22 [Rx] RX: lisinopriL [Zestril] 40 mg PO DAILY #60 tab 09/08/22 [Rx] Follow up Appointment(s)/Referral(s): Blas Lamas DO [Primary Care Provider] - 1-2 days Madeleine Snyder MD [STAFF PHYSICIAN] - 10/12/22 3:15 pm Rosmery Ahn MD [STAFF PHYSICIAN] - 09/26/22 9:45 am (change room attendant, for new Onset diabetes mellitus) Patient Instructions/Handouts: Type 2 Diabetes in Adults: New Diagnosis (DC) Activity/Diet/Wound Care/Special Instructions: Heart healthy diet, low carbohydrate diet 1600 kcal per day (for your new onset diabetes mellitus) Activity is restricted till you see your doctor we recommend to check your glucose 4 times a day ,before each meal and at bed time, and keep the results in a log book and bring it to your doctor on your appointment date if your glucose is less than 70 or more than 400 then call 911 and come to emergency room Discharge Disposition: HOME SELF-CARE
== END 2022-09-08 16:44 | disposition home or self-care (01) | DRG 178 ==
LOC: EC 07:51 → 5NMEDONC 12:23 → 4SSUR 22:32
PROVIDERS: ADMIT Internal Medicine; ATTEND Internal Medicine
DX: U07.1 COVID-19 (principal); A08.39 Other viral enteritis; D69.6 Thrombocytopenia, unspecified; K76.0 Fatty (change of) liver, not elsewhere classified; E11.9 Type 2 diabetes mellitus without complications; I10 Essential (primary) hypertension; F32.A Depression, unspecified; E83.51 Hypocalcemia; E86.0 Dehydration; F17.210 Nicotine dependence, cigarettes, uncomplicated; E87.6 Hypokalemia; K44.9 Diaphragmatic hernia without obstruction or gangrene; R00.1 Bradycardia, unspecified; E83.42 Hypomagnesemia; Z79.899 Other long term (current) drug therapy
CPT/HCPCS: 36415; 71046; 74177; 80048; 80053; 82150; 83036; 83605; 83630; 83690; 83735; 83993; 84132; 84145; 84484; 85025; 87045; 87046; 87324; 87502; 87635; 93005; 96361; 96365; 96366; 96367; 96372; 96375; 96376; 99285

== ENCOUNTER → 2023-06-28 | Outpatient (CLI) | payer MEDICARE | END | disposition home or self-care (01) | LOC: LABWHC1 12:02 | PROVIDERS: ATTEND Family Medicine | DX: E11.65 Type 2 diabetes mellitus with hyperglycemia (principal) | CPT/HCPCS: 36415; 83036 ==

== ENCOUNTER 2024-01-25 09:21 | Emergency (ER) | payer MEDICARE ==
--- NOTE | 2024-01-25 10:05 | ED ---
Back Pain HPI - General Chief Complaint: Back Pain/Injury Stated Complaint: Heart Palpitations Time Seen by Provider: 01/25/24 09:45 Source: patient, RN notes reviewed Limitations: no limitations - History of Present Illness Initial Comments: This is a 68-year-old male with history of HTN and prediabetes presents emergency room chief complaint of thoracic back pain over the last 3 days. Patient states the pain is located between his shoulder blades and at times when the pain arises is associated with nausea and episodes of dry heaving and a burning sensation that lasts for about 7-8 minutes. This pain wraps around into the distal anterior chest wall, he denies chest pain/pressure/palpitations, shortness of breath or dizziness when this pain occurs. Patient denies trauma or injury to his back, however states that he has been doing a lot of physical therapy over the past few days including pushing his boat back into his garage and quite a bit of yard work. He denies paresthesias, saddle anesthesias, bladder or bowel incontinence. Patient states that over the last few days he has been having a sensation of an abnormal heart beat. Denies dizziness, lightheadedness, fatigue, chest pain or palpitations or pressure, dyspnea, orthopnea, lower extremity edema. Denies history of CVA or MO. Patient has a history of pain around his rib cage that he says is undiagnosed, takes Lyrica for this. - Related Data Home Medications Medication Instructions Recorded Confirmed Escitalopram [Lexapro] 20 mg PO DAILY 09/06/22 01/25/24 Pregabalin 225 mg PO BID 09/06/22 01/25/24 oxyCODONE-APAP 5-325MG [Percocet 1 tab PO TID PRN 09/06/22 01/25/24 5-325 mg] Lisinopril-Hctz 20-25 mg 1 tab PO DAILY 01/25/24 01/25/24 [Zestoretic 20-25] Pantoprazole [Protonix] 40 mg PO DAILY 01/25/24 01/25/24 rOPINIRole HCL [Requip] 0.5 mg PO DAILY PRN 01/25/24 01/25/24 Previous Rx's Medication Instructions Recorded Cyclobenzaprine [Flexeril] 10 mg PO TID PRN #15 tab 01/25/24 Lidocaine 4% Patch 1 patch TOPICAL DAILY #7 patch 01/25/24 Allergies Allergy/AdvReac Type Severity Reaction Status Date / Time No Known Allergies Allergy Verified 01/25/24 10:51 Review of Systems ROS Statement: Those systems with pertinent positive or pertinent negative responses have been documented in the HPI. ROS Other: All systems not noted in ROS Statement are negative. Past Medical History Past Medical History: Diabetes Mellitus, GI Bleed, Hypertension Additional Past Medical History / Comment(s): Severe GI bleed pt states caused by popcorn kernal requiring blood transfusions, chronic nerve pain in trunk area, chronic cervical and lumbar pain. History of Any Multi-Drug Resistant Organisms: None Reported Past Surgical History: Cholecystectomy, Hernia Repair Additional Past Surgical History / Comment(s): EGD, colonoscopies/benign polypectomy, umbilical hernia repair Past Anesthesia/Blood Transfusion Reactions: No Reported Reaction Additional Past Anesthesia/Blood Transfusion Reaction / Comment(s): Pt has received blood transfusions without reaction. Past Psychological History: Anxiety, Depression Smoking Status: Current every day smoker Past Alcohol Use History: None Reported Past Drug Use History: None Reported - Past Family History Father Family Medical History: Coronary Artery Disease (CAD) Additional Family Medical History / Comment(s): Father is . Mother History Unknown: Yes Additional Family Medical History / Comment(s): Mother committed suicide. General Exam Limitations: no limitations General appearance: alert, in no apparent distress Head exam: Present: atraumatic, normocephalic, normal inspection Eye exam: Present: normal appearance, PERRL, EOMI. Absent: scleral icterus, conjunctival injection, periorbital swelling ENT exam: Present: normal exam, mucous membranes moist Neck exam: Present: normal inspection. Absent: tenderness, meningismus, lymphadenopathy Respiratory exam: Present: normal lung sounds bilaterally. Absent: respiratory distress, wheezes, rales, rhonchi, stridor Cardiovascular Exam: Present: regular rate, normal rhythm, normal heart sounds. Absent: systolic murmur, diastolic murmur, rubs, gallop, clicks GI/Abdominal exam: Present: soft, tenderness (mild diffuse tenderness to deep palpation), normal bowel sounds. Absent: distended, guarding, rebound, rigid Extremities exam: Present: normal inspection, full ROM, normal capillary refill. Absent: tenderness, pedal edema, joint swelling, calf tenderness Back exam: Present: normal inspection Neurological exam: Present: alert, oriented X3, CN II-XII intact Psychiatric exam: Present: normal affect, normal mood Skin exam: Present: warm, dry, intact, normal color. Absent: rash Course Vital Signs 01/25/24 01/25/24 01/25/24 09:22 12:00 13:37 Temperature 98.7 F 99.4 F 98.7 F Pulse Rate 76 64 64 Respiratory 16 18 17 Rate Blood Pressure 164/79 166/82 180/85 O2 Sat by Pulse 100 98 100 Oximetry Medical Decision Making - Medical Decision Making Was pt. sent in by a medical professional or institution (, PA, TABULATING MACHINE MECHANIC, urgent care, hospital, or [place] [facility] care facility...) When possible be specific @ -No Did you speak to anyone other than the patient for history (EMS, parent, family, police, friend...)? What history was obtained from this source @ -No Did you review nursing and triage notes (agree or disagree)? Why? @ -I reviewed and agree with nursing and triage notes Were old charts reviewed (outside hosp., previous admission, EMS record, old EKG, old radiological studies, urgent care reports/EKG's, [place] health care facility records)? Report findings @ -No old charts were reviewed Differential Diagnosis (chest pain, altered mental status, abdominal pain women, abdominal pain men, vaginal bleeding, weakness, fever, dyspnea, syncope, headache, dizziness, GI bleed, back pain, seizure, CVA, palpatations, mental health, musculoskeletal)? @ -Differential Musculoskeletal Muscular strain, contusion, ligament sprain, fracture, arthritis, septic arthritis, bursitis, cellulitis, muscle spasm, nerve compression, DVT, arterial occlusion, herpes zoster, electrolyte abnormality, tumor.... This is not meant to be in all inclusive list EKG interpreted by me (3pts min.). @ -completed at 931 reading sinus rhythm with occasional PVCs, ventricular rate 73, DC interval 184, QTc 433. X-rays interpreted by me (1pt min.). @ -X-rays cervical spine, thoracic spine and chest No acute bony pathology. Mild to moderate degenerative disc disease of the cervical and thoracic spine and chest x-ray shows COPD changes CT interpreted by me (1pt min.). @ -None done U/S interpreted by me (1pt. min.). @ -None done What testing was considered but not performed or refused? (CT, X-rays, U/S, labs)? Why? @ -Further imaging such as CT of the chest was considered but deferred at this time. Patient's laboratory results including D-dimer and troponin nonelevated. For acute deformity. What meds were considered but not given or refused? Why? @ -None Did you discuss the management of the patient with other professionals (professionals i.e. Dr., PA, TABULATING MACHINE MECHANIC, lab, RT, psych nurse, clinical social work aide, bobcat driver/labor, teacher, morals squad police officer, case hardener)? Give summary @ -No Was smoking cessation discussed for >3mins.? @ -No Was critical care preformed (if so, how long)? @ -No Were there social determinants of health that impacted care today? How? (Homelessness, low income, unemployed, alcoholism, drug addiction, transportation, low edu. Level, literacy, decrease access to med. care, [facility], rehab)? @ -No Was there de-escalation of care discussed even if they declined (Discuss DNR or withdrawal of care, Hospice)? DNR status @ -No What co-morbidities impacted this encounter? (DM, HTN, Smoking, COPD, CAD, Cancer, CVA, ARF, Chemo, Hep., AIDS, mental health diagnosis, sleep apnea, morbid obesity)? @ -HTN, prediabetes Was patient admitted / discharged? Hospital course, mention meds given and route , prescriptions, significant lab abnormalities, going to OR and other pertinent info. @ -68-year-old male with complaint of thoracic back pain. On physical examination pain is not reproducible over the area of complaint on palpation, no spasms noted. There is midl diffuse tenderness over the abdomen with deep palpation, no rigidity, guarding, rebound tenderness, or pulsatile abdominal mass. Patient's cardiovascular and pulmonary examinations are unremarkable. Imaging of the patient's thoracic cervical and chest x-rays were unremarkable. At this time due to patient's completely pain being reproducible and lasting between 7 to 8 minutes total laboratory tests ordered including CBC, CMP, D- dimer and troponin. Patient has not been given any medication for pain, has been offered yet he declined to not feeling any pain at time of discussion. Patient's CBC and CMP unremarkable, glucose elevated at 254. Patient's D-dimer nonelevated and troponin nonelevated. Review of patient's EKG does not reveal ischemic changes. Due to patient's laboratory results further imaging is not recommended at this time. Patient symptoms are very musculoskeletal in nature and muscle spasm. Patient will be discharged as needed muscle relaxers and lidocaine patches. Patient is instructed to follow-up with his primary care provider next week for further evaluation. Patient agreeable with this. Discussed with Dr. Baca Undiagnosed new problem with uncertain prognosis? @ -No Drug Therapy requiring intensive monitoring for toxicity (Heparin, Nitro, Insulin, Cardizem)? @ -No Were any procedures done? @ -No Diagnosis/symptom? @ -back pain, muscle spasm Acute, or Chronic, or Acute on Chronic? @ -acute Uncomplicated (without systemic symptoms) or Complicated (systemic symptoms)? @ -uncomplicated Side effects of treatment? @ -No Exacerbation, Progression, or Severe Exacerbation? @ -No Poses a threat to life or bodily function? How? (Chest pain, USA, MO, pneumonia, PE, COPD, DKA, ARF, appy, cholecystitis, CVA, Diverticulitis, Homicidal, Suicidal, threat to staff... and all critical care pts) @ -No - Lab Data Result diagrams: 01/25/24 11:47 01/25/24 11:47 Lab Results 01/25/24 01/25/24 01/25/24 Range/Units 11:47 11:47 11:47 WBC 11.7 H (3.8-10.6) k/uL RBC 5.23 (4.30-5.90) m/uL Hgb 15.4 (13.0-17.5) gm/dL Hct 46.8 (39.0-53.0) % MCV 89.6 (80.0-100.0) fL MCH 29.5 (25.0-35.0) pg MCHC 32.9 (31.0-37.0) g/dL RDW 15.5 (11.5-15.5) % Plt Count 241 (150-450) k/uL MPV 8.5 Neutrophils % 72 % Lymphocytes % 20 % Monocytes % 4 % Eosinophils % 2 % Basophils % 1 % Neutrophils # 8.3 H (1.3-7.7) k/uL Lymphocytes # 2.3 (1.0-4.8) k/uL Monocytes # 0.5 (0-1.0) k/uL Eosinophils # 0.3 (0-0.7) k/uL Basophils # 0.1 (0-0.2) k/uL D-Dimer 0.52 (<0.60) mg/L FEU Sodium 139 (137-145) mmol/L Potassium 4.2 (3.5-5.1) mmol/L Chloride 108 H (98-107) mmol/L Carbon Dioxide 22 (22-30) mmol/L Anion Gap 9 mmol/L BUN 9 (9-20) mg/dL Creatinine 0.48 L (0.66-1.25) mg/dL Est GFR (CKD-EPI)AfAm >90 (>60 ml/min/1.73 sqM) Est GFR (CKD-EPI)NonAf >90 (>60 ml/min/1.73 sqM) Glucose 254 H (74-99) mg/dL Calcium 8.8 (8.4-10.2) mg/dL Total Bilirubin 0.6 (0.2-1.3) mg/dL AST 25 (17-59) U/L ALT 14 (4-49) U/L Alkaline Phosphatase 71 (38-126) U/L Troponin I (0.000-0.034) ng/mL Total Protein 6.6 (6.3-8.2) g/dL Albumin 3.9 (3.5-5.0) g/dL 01/25/24 Range/Units 11:47 WBC (3.8-10.6) k/uL RBC (4.30-5.90) m/uL Hgb (13.0-17.5) gm/dL Hct (39.0-53.0) % MCV (80.0-100.0) fL MCH (25.0-35.0) pg MCHC (31.0-37.0) g/dL RDW (11.5-15.5) % Plt Count (150-450) k/uL MPV Neutrophils % % Lymphocytes % % Monocytes % % Eosinophils % % Basophils % % Neutrophils # (1.3-7.7) k/uL Lymphocytes # (1.0-4.8) k/uL Monocytes # (0-1.0) k/uL Eosinophils # (0-0.7) k/uL Basophils # (0-0.2) k/uL D-Dimer (<0.60) mg/L FEU Sodium (137-145) mmol/L Potassium (3.5-5.1) mmol/L Chloride (98-107) mmol/L Carbon Dioxide (22-30) mmol/L Anion Gap mmol/L BUN (9-20) mg/dL Creatinine (0.66-1.25) mg/dL Est GFR (CKD-EPI)AfAm (>60 ml/min/1.73 sqM) Est GFR (CKD-EPI)NonAf (>60 ml/min/1.73 sqM) Glucose (74-99) mg/dL Calcium (8.4-10.2) mg/dL Total Bilirubin (0.2-1.3) mg/dL AST (17-59) U/L ALT (4-49) U/L Alkaline Phosphatase (38-126) U/L Troponin I <0.012 (0.000-0.034) ng/mL Total Protein (6.3-8.2) g/dL Albumin (3.5-5.0) g/dL Disposition Clinical Impression: Muscle spasm of back, Back pain Narrative: Please return to the Emergency Department if symptoms worsen or any other concerns. Follow-up with your primary care provider within the next week for further evaluation. Use lidocaine patches as prescribed and also relaxers as needed. Disposition: HOME SELF-CARE Condition: Good Instructions (If sedation given, give patient instructions): Muscle Spasm (ED) Prescriptions: Cyclobenzaprine [Flexeril] 10 mg PO TID PRN #15 tab PRN Reason: Muscle Spasm Lidocaine 4% Patch 1 patch TOPICAL DAILY #7 patch Is patient prescribed a controlled substance at d/c from ED?: No Referrals: Blas Lamas DO [Primary Care Provider] - 1-2 days Time of Disposition: 13:19
--- NOTE | 2024-01-25 11:10 | XR ---
EXAMINATION TYPE: XR cervical spine comp DATE OF EXAM: 01/25/2024 10:37 AM CLINICAL INDICATION:Male, 68 years old with history of pain; [facility] COMPARISON: None TECHNIQUE: The cervical spine was imaged in frontal, lateral, odontoid and bilateral oblique. FINDINGS: The osseous structures show normal alignment without evidence of an acute fracture. There are osteoph ytes noted throughout the cervical spine on the anterior and lateral aspects of the vertebral bodies. The intervertebral disk spaces are narrowed at multiple levels. Pedicles are intact. Soft tissues a re within normal limits. The odontoid appears intact. Neural foraminal stenosis worse at C3-C4 and C4 -C5 bilaterally with at least moderate stenosis. IMPRESSION: 1. No fracture or dislocation. 2. Mild to moderate degenerative disc disease changes of the cervical spine.
--- NOTE | 2024-01-25 11:11 | XR ---
EXAMINATION TYPE: XR thoracic spine complete DATE OF EXAM: 01/25/2024 10:37 AM CLINICAL INDICATION:Male, 68 years old with history of pain; [facility] COMPARISON: None TECHNIQUE: XR thoracic spine complete views of the spine in Frontal and lateral projections. FINDINGS: No evidence of acute fracture. There is scattered multilevel disk space narrowing without loss of ve rtebral body height. There is normal alignment of the thoracic vertebral bodies. Scattered osteophyte formation along the anterior and lateral aspects of the vertebral bodies. Neural foramen are patent given limitations of this exam. Spinal canal appears patent. IMPRESSION: 1. No acute osseous pathology. 2. Mild to moderate degeneration changes throughout the thoracic spine.
--- NOTE | 2024-01-25 11:23 | XR ---
EXAMINATION TYPE: XR chest 2V DATE OF EXAM: 01/25/2024 10:37 AM CLINICAL INDICATION:Male, 68 years old with history of pain; [facility] COMPARISON: Chest radiographs from 01/25/2024 TECHNIQUE: XR chest 2V Frontal and lateral views of the chest. FINDINGS: Lungs/Pleura: There is flattening of the diaphragm with increased lucency of the lungs. No evidence o f pneumothorax, pleural effusion or focal consolidation. Pulmonary vascularity: Unremarkable. Heart/mediastinum: Cardiomediastinal silhouette is unremarkable. Musculoskeletal: No acute osseous pathology. IMPRESSION: 1. No acute cardiopulmonary disease process. 2. COPD changes.
[2024-01-25 11:53] LABS: Basophils # (A) 0.1 k/uL (0-0.2); Basophils % (A) 1 %; Eosinophils # (A) 0.3 k/uL (0-0.7); Eosinophils % (A) 2 %; HCT 46.8 % (39.0-53.0); HGB 15.4 gm/dL (13.0-17.5); Lymphocytes # (A) 2.3 k/uL (1.0-4.8); Lymphocytes % (A) 20 %; MCH 29.5 pg (25.0-35.0); MCHC 32.9 g/dL (31.0-37.0); MCV 89.6 fL (80.0-100.0); Mean Platelet Volume 8.5; Monocytes # (A) 0.5 k/uL (0-1.0); Monocytes % (A) 4 %; Neutrophils # (A) 8.3 k/uL (1.3-7.7); Neutrophils % (A) 72 %; Platelet Count 241 k/uL (150-450); RBC 5.23 m/uL (4.30-5.90); RDW 15.5 % (11.5-15.5); WBC 11.7 k/uL (3.8-10.6)
[2024-01-25 12:08] LABS: ALT 14 U/L (4-49); AST 25 U/L (17-59); African American GFR (CKD) >90 (>60 ml/min/1.73 sqM); Albumin 3.9 g/dL (3.5-5.0); Alkaline Phosphatase 71 U/L (38-126); Anion Gap 9 mmol/L; Blood Urea Nitrogen 9 mg/dL (9-20); Calcium 8.8 mg/dL (8.4-10.2); Carbon Dioxide 22 mmol/L (22-30); Chloride 108 mmol/L (98-107); Glucose 254 mg/dL (74-99); Non-African American GFR(CKD) >90 (>60 ml/min/1.73 sqM); Sodium 139 mmol/L (137-145); Total Bilirubin 0.6 mg/dL (0.2-1.3); Total Protein 6.6 g/dL (6.3-8.2)
[2024-01-25 12:11] VITALS: PULSE 64
[2024-01-25 12:43] LABS: Potassium 4.2 mmol/L (3.5-5.1)
[2024-01-25 13:41] VITALS: BP 180/85; RESP 17; TEMP 98.7
== END 2024-01-25 13:38 | disposition home or self-care (01) ==
LOC: EC 09:21
DX: M62.830 Muscle spasm of back (principal); F17.200 Nicotine dependence, unspecified, uncomplicated
CPT/HCPCS: 36415; 71046; 72050; 72072; 80053; 84484; 85025; 85379; 99285

== ENCOUNTER → 2024-03-30 | Outpatient (CLI) | payer MEDICARE ==
--- NOTE | 2024-03-30 10:21 | MR ---
EXAMINATION TYPE: MR thoracic spine wo con DATE OF EXAM: 03/30/2024 COMPARISON: None HISTORY: Mid back pain, nerve pain x7 years CONTRAST: None TECHNIQUE: Multiplanar, multiecho imaging on a 3.0 Melita magnet is performed through the thoracic spi ne. Note is made initial imaging of a focal spinal canal stenosis at C3-4 level. Additional evaluation wi MRI cervical spine. Compression deformity of C7 may be present. Some changes at C6-7 disc level sp inal canal may be present without stenosis Thoracic spine: Minimal disc bulge is present centrally at C7-T1. No cord contact or spinal canal stenosis is present . At the superior endplate of T7 there is a signal abnormality measuring 1.0 x 0.7 cm posterior to the spinal cord. This is hypointense on T1 and appears to have some peripheral hyperintensity on T2-weigh bairon images. While artifact suspected. Underlying mass should be considered. Recommend contrast MRI ce rvical spine. Spinal cord maintains normal signal through its visualized course. Vertebral body alignment is normal. Vertebral body heights are preserved. Disc heights are preserved. Disc hydration levels are preserved. No spinal canal stenosis is evident. IMPRESSION: 1. Artifact versus mass posterior to the spinal cord at the level of the T7 superior endplate. Additi onal workup with contrast MRI thoracic spine is recommended. 2. There appears to be spinal canal stenosis, possibly with cord signal abnormality at the C3-4 level . Additional evaluation with MRI cervical spine recommended. 3. Compression deformity C7.
== END | disposition home or self-care (01) ==
LOC: RADMRIMAIN 08:43
PROVIDERS: ATTEND Family Medicine
DX: M54.6 Pain in thoracic spine (principal)
CPT/HCPCS: 72146

== ENCOUNTER → 2024-04-17 | Outpatient (CLI) | payer MEDICARE ==
--- NOTE | 2024-04-17 17:50 | MR ---
EXAMINATION TYPE: MR cervical spine wo/w con DATE OF EXAM: 04/17/2024 COMPARISON: MRI thoracic spine 03/30/2024, cervical spine radiograph 01/25/2024 HISTORY: Stenosis, Pain and stiffness last couple weeks, Cervical abnormality seen on T-spine done TECHNIQUE: Multiplanar, multisequence images of the cervical spine were acquired without contrast and with 11 mL intravenous Gadavist gadolinium contrast. FINDINGS: Alignment: The cervical vertebral bodies have preserved heights. Similar minimal grade 1 anterolisthe sis of C3 on C4 and C4 on C5. Bones: Bone signal is within normal limits. Multilevel degenerative disc disease is noted. Cord: The spinal cord is unremarkable with to morphology. No overt spinal cord signal abnormality. Discs: Multilevel disc desiccation is present. C2-C3: No significant disc pathology. The spinal canal is patent. No neural foraminal stenosis. C3-C4: Posterior disc osteophyte complex with mild effacement of the anterior thecal sac. Uncoverteb ral joint hypertrophy with bilateral facet arthropathy resulting in mild bilateral neuroforaminal lindsay nosis. C4-C5: No significant disc pathology. The spinal canal is patent. No neural foraminal stenosis. C5-C6: No significant disc pathology. The spinal canal is patent. No neural foraminal stenosis. C6-C7: Posterior disc osteophyte complex resulting in mild effacement of the anterior thecal sac. Arnie ateral facet arthropathy with uncovertebral joint hypertrophy resulting in mild bilateral neural fora michael stenosis. C7-T1: No significant disc pathology. The spinal canal is patent. No neural foraminal stenosis. No abnormal contrast enhancement identified. IMPRESSION: Mild to moderate central canal stenosis due to posterior disc osteophyte complexes at C3-C4 and C6-C7 . No evidence for disc herniation. Mild bilateral neural foraminal stenosis at these levels secondary to facet arthropathy and uncovertebral joint hypertrophy. No abnormal contrast enhancement.
== END | disposition home or self-care (01) ==
LOC: RADMRIMAIN 16:27
PROVIDERS: ATTEND Family Medicine
DX: M99.71 Connective tissue and disc stenosis of intervertebral foramina of cervical region (principal); M25.78 Osteophyte, vertebrae; M47.812 Spondylosis without myelopathy or radiculopathy, cervical region
CPT/HCPCS: 72156; A9585

== ENCOUNTER → 2024-04-20 | Outpatient (CLI) | payer MEDICARE ==
--- NOTE | 2024-04-20 09:49 | MR ---
EXAMINATION TYPE: MR thoracic spine w con DATE OF EXAM: 04/20/2024 COMPARISON: 03/30/2024 HISTORY: Mass of spine, Abnormal MRI T-spine without contrast done 03-30-2024 CONTRAST: Performed utilizing 11 mL intravenous Gadavist gadolinium contrast. TECHNIQUE: Multiplanar, multiecho imaging on a 3.0 Melita magnet is performed through the thoracic spi ne. Spinal cord maintains normal signal through its visualized course. Vertebral body alignment is normal. Vertebral body heights are preserved. Disc heights are preserved. Disc hydration levels are preserved. Following contrast administration, no abnormal enhancement is evident. Attention was paid to the previous abnormal region posterior to T7 level. There is persistence of in termediate signal within the spinal canal posterior to the spinal cord at T7 level. T1-weighted postc ontrast imaging this appears to measure 0.6 x 0.4 cm in size which is smaller than the T2 sequence me asurements. This may be minimal uptake of contrast compared to the precontrast imaging of 03/30/2024. No cord contact or cord deformity is evident. No spinal canal stenosis. No spinal canal stenosis is evident. IMPRESSION: 1. 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 Differential diagnoses include, but is not limited to, etiologies such as neurofibroma, schwannoma, metastasis
== END | disposition home or self-care (01) ==
LOC: RADMRIMAIN 08:18
PROVIDERS: ATTEND Family Medicine
DX: M89.8X8 Other specified disorders of bone, other site (principal)
CPT/HCPCS: 72147; A9585

== ENCOUNTER 2024-10-28 20:31 | Inpatient (IN) | payer MEDICARE ==
--- NOTE | 2024-10-28 20:37 | ED ---
GI Bleed HPI - General Stated complaint: GI bleed Time Seen by Provider: 10/28/24 20:34 Source: RN notes reviewed, old records reviewed Mode of arrival: ambulatory Limitations: no limitations - History of Present Illness Initial comments: This is a 69-year-old male history of GI bleed coming in for GI bleed today. Bright red blood per rectum with some clots. Into a diaper. Patient has history of GI bleed no blood thinners though patient has been taking motrin for pain, currently no current abdominal pain. Patient does feel lightheaded dizzy and weak with history of GI bleed, no history of liver disease. MD complaint: blood on toilet paper, blood streaked stool -: days(s) Quality: painless Consistency: constant Improves with: none Worsens with: none Context: history of GI bleed Associated Symptoms: nausea, syncope (Near syncope), weakness Treatments Prior to Arrival: none - Related Data Home Medications Medication Instructions Recorded Confirmed Escitalopram [Lexapro] 20 mg PO DAILY 09/06/22 01/25/24 Pregabalin 225 mg PO BID 09/06/22 01/25/24 oxyCODONE-APAP 5-325MG [Percocet 1 tab PO TID PRN 09/06/22 01/25/24 5-325 mg] Lisinopril-Hctz 20-25 mg 1 tab PO DAILY 01/25/24 01/25/24 [Zestoretic 20-25] Pantoprazole [Protonix] 40 mg PO DAILY 01/25/24 01/25/24 rOPINIRole HCL [Requip] 0.5 mg PO DAILY PRN 01/25/24 01/25/24 Previous Rx's Medication Instructions Recorded Cyclobenzaprine [Flexeril] 10 mg PO TID PRN #15 tab 01/25/24 Lidocaine 4% Patch 1 patch TOPICAL DAILY #7 patch 01/25/24 Allergies Allergy/AdvReac Type Severity Reaction Status Date / Time No Known Allergies Allergy Verified 10/28/24 20:38 Review of Systems ROS Statement: Those systems with pertinent positive or pertinent negative responses have been documented in the HPI. ROS Other: All systems not noted in ROS Statement are negative. Past Medical History Past Medical History: Diabetes Mellitus, GI Bleed, Hypertension Additional Past Medical History / Comment(s): Severe GI bleed pt states caused by popcorn kernal requiring blood transfusions, chronic nerve pain in trunk area, chronic cervical and lumbar pain. History of Any Multi-Drug Resistant Organisms: None Reported Past Surgical History: Cholecystectomy, Hernia Repair Additional Past Surgical History / Comment(s): EGD, colonoscopies/benign polypectomy, umbilical hernia repair Past Anesthesia/Blood Transfusion Reactions: No Reported Reaction Additional Past Anesthesia/Blood Transfusion Reaction / Comment(s): Pt has received blood transfusions without reaction. Past Psychological History: Anxiety, Depression Smoking Status: Current every day smoker Past Alcohol Use History: None Reported Past Drug Use History: None Reported - Past Family History Father Family Medical History: Coronary Artery Disease (CAD) Additional Family Medical History / Comment(s): Father is . Mother History Unknown: Yes Additional Family Medical History / Comment(s): Mother committed suicide. General Exam Limitations: altered mental status, physical limitation General appearance: alert, anxious, lethargic, in distress Head exam: Present: atraumatic, normocephalic, normal inspection Eye exam: Present: normal appearance, PERRL, EOMI. Absent: scleral icterus, conjunctival injection, periorbital swelling ENT exam: Present: normal exam, mucous membranes moist Neck exam: Present: normal inspection. Absent: tenderness, meningismus, lymphadenopathy Respiratory exam: Present: normal lung sounds bilaterally. Absent: respiratory distress, wheezes, rales, rhonchi, stridor Cardiovascular Exam: Present: regular rate, normal rhythm, normal heart sounds. Absent: systolic murmur, diastolic murmur, rubs, gallop, clicks GI/Abdominal exam: Present: soft, normal bowel sounds. Absent: distended, tenderness, guarding, rebound, rigid Rectal exam: Present: heme (+) stool, black stool, bloody stool Extremities exam: Present: normal inspection, full ROM, normal capillary refill. Absent: tenderness, pedal edema, joint swelling, calf tenderness Back exam: Present: normal inspection Neurological exam: Present: alert, oriented X3, CN II-XII intact Psychiatric exam: Present: normal affect, normal mood Skin exam: Present: warm, dry, intact, normal color. Absent: rash Course Vital Signs 10/28/24 10/28/24 10/28/24 20:33 22:51 23:00 Temperature 98.2 F 98.3 F 98.2 F Pulse Rate 79 75 73 Respiratory 18 17 17 Rate Blood Pressure 126/72 129/64 129/62 O2 Sat by Pulse 100 96 97 Oximetry 10/28/24 10/29/24 10/29/24 23:20 00:30 01:05 Temperature 98.1 F 97.5 F L 98.6 F Pulse Rate 72 93 89 Respiratory 17 24 24 Rate Blood Pressure 139/62 115/73 94/65 O2 Sat by Pulse 98 98 98 Oximetry 10/29/24 10/29/24 10/29/24 01:16 01:25 01:26 Temperature 98.6 F 97.6 F 97.6 F Pulse Rate 94 94 96 Respiratory 24 23 24 Rate Blood Pressure 102/60 95/63 94/74 O2 Sat by Pulse 99 96 96 Oximetry 10/29/24 01:46 Temperature Pulse Rate 91 Respiratory 18 Rate Blood Pressure 84/59 O2 Sat by Pulse Oximetry - Reevaluation(s) Reevaluation #1: 10/28/24 21:42 Medical records reviewed Reevaluation #2: 10/28/24 21:42 Patient still does have significant bloody GI bleed melanotic stool persistent Patient having significant bloody be bowel movements here in the ER, black stool, no vomiting of blood Patient given multiple transfusions here in the ER with improvement in blood pressure and mental status Reevaluation #3: 10/28/24 21:42 Patient informed of results and questions answered 10/29/24 00:41 Patient does suffer deterioration here in the ER decreasing blood pressures increasing diaphoresis and increasing amount of stool and bloody/tarry output GI, patient given TXA 2 more units of transfusion and will admit to ICU Patient with persist and bloody melanotic stool Reevaluation #4: Was pt. sent in by a medical professional or institution (, PA, NIGHT SHIFT SUPERVISOR, urgent care, hospital, or fpc...) When possible be specific @ -no Did you speak to anyone other than the patient for history (EMS, parent, family, police, friend...)? What history was obtained from this source @ -no Did you review nursing and triage notes (agree or disagree)? Why? @ -agree Are old charts reviewed (outside hosp., previous admission, EMS record, old EKG, old radiological studies, urgent care reports/EKG's, fpc records)? Report findings @ -yes Differential Diagnosis (chest pain, altered mental status, abdominal pain women, abdominal pain men, vaginal bleeding, weakness, fever, dyspnea, syncope, headache, dizziness, GI bleed, back pain, seizure, CVA, palpatations, mental health, musculoskeletal)? @ -prior EKG interpreted by me (3pts min.). @ -no X-rays interpreted by me (1pt min.). @ -no CT interpreted by me (1pt min.). @ -no U/S interpreted by me (1pt. min.). @ -no What testing was considered but not performed or refused? (CT, X-rays, U/S, labs)? Why? @ -none What meds were considered but not given or refused? Why? @ -none Did you discuss the management of the patient with other professionals (professionals i.e. , PA, NIGHT SHIFT SUPERVISOR, lab, RT, psych nurse, neonatal social worker, home health clinical liaison, teacher, minesweeping officer, casey saw operator)? Give summary @ -no Was smoking cessation discussed for >3mins.? @ -no Was critical care preformed (if so, how long)? @ -yes31 Were there social determinants of health that impacted care today? How? (Homelessness, low income, unemployed, alcoholism, drug addiction, transportation, low edu. Level, literacy, decrease access to med. care, correction, rehab)? @ -none Was there de-escalation of care discussed even if they declined (Discuss DNR or withdrawal of care, Hospice)? DNR status @ -no What co-morbidities impacted this encounter? (DM, HTN, Smoking, COPD, CAD, Cancer, CVA, ARF, Chemo, Hep., AIDS, mental health diagnosis, sleep apnea, morbid obesity)? @ -none Was patient admitted / discharged? Hospital course, mention meds given and route, prescriptions, significant lab abnormalities, going to OR and other pe rtinent info. @ - 69 male to ER with acute GI bleed. Patient will admit for transfusion and GI evaluation and treatment, patient has persistent bleeding here in the ER transfusion is activated and increased blood pressures improving here in the emergency department and patient admit to the ICU Admitted Undiagnosed new problem with uncertain prognosis? @ -no Drug Therapy requiring intensive monitoring for toxicity (Heparin, Nitro, Insulin, Cardizem)? @ -no Were any procedures done? @ -no Diagnosis/symptom? @ -Acute GI bleed melanotic stool Acute, or Chronic, or Acute on Chronic? @ -Acute Uncomplicated (without systemic symptoms) or Complicated (systemic symptoms)? @ -Complicated Side effects of treatment? @ -no Exacerbation, Progression, or Severe Exacerbation? @ -exacerbation Poses a threat to life or bodily function? How? (Chest pain, [place], [place], pneumonia, PE, COPD, DKA, ARF, appy, cholecystitis, CVA, Diverticulitis, Homicidal, Suicidal, threat to staff... and all critical care pts) @ -yes significant GI bleed Reevaluation #5: Differential GI Bleed: Esophageal varices, aortoenteric fistula, Gladys-Gabriel, gastritis, peptic ulcer disease, diverticulosis, inflammatory bowel disease, hemorrhoids, fissure, colitis, malignancy, Meckel's diverticulum, this is not meant to be an all- inclusive list. - Consultations Consultation #1: Spoke with sound who agrees to admit this patient Consultation #2: Spoke with ICU patient is excepted to the ICU Consultation #3: Spoke with Dr. Garcia aware of patient's active bleeding Medical Decision Making - Medical Decision Making 69 male to ER with acute GI bleed. Patient will admit for transfusion and GI evaluation and treatment, patient has persistent bleeding here in the ER transfusion is activated and increased blood pressures improving here in the emergency department and patient admit to the ICU - Lab Data Result diagrams: 10/29/24 06:00 10/29/24 04:56 Lab Results 10/28/24 10/28/24 10/28/24 Range/Units 20:45 20:51 20:51 WBC 12.3 H (3.8-10.6) k/uL RBC 3.12 L (4.30-5.90) m/uL Hgb 9.8 L (13.0-17.5) gm/dL Hct 28.1 L (39.0-53.0) % MCV 90.2 (80.0-100.0) fL MCH 31.3 (25.0-35.0) pg MCHC 34.7 (31.0-37.0) g/dL RDW 13.9 (11.5-15.5) % Plt Count 323 (150-450) k/uL MPV 8.1 Neutrophils % 74 % Lymphocytes % 19 % Monocytes % 4 % Eosinophils % 1 % Basophils % 0 % Neutrophils # 9.1 H (1.3-7.7) k/uL Lymphocytes # 2.4 (1.0-4.8) k/uL Monocytes # 0.5 (0-1.0) k/uL Eosinophils # 0.1 (0-0.7) k/uL Basophils # 0.0 (0-0.2) k/uL PT 11.1 (10.0-12.5) sec INR 1.0 (<1.2) APTT 22.2 (22.0-30.0) sec Sodium (137-145) mmol/L Potassium (3.5-5.1) mmol/L Chloride (98-107) mmol/L Carbon Dioxide (22-30) mmol/L Anion Gap mmol/L BUN (9-20) mg/dL Creatinine (0.66-1.25) mg/dL Est GFR (CKD-EPI)AfAm (>60 ml/min/1.73 sqM) Est GFR (CKD-EPI)NonAf (>60 ml/min/1.73 sqM) Glucose (74-99) mg/dL Calcium (8.4-10.2) mg/dL Magnesium (1.6-2.3) mg/dL Total Bilirubin (0.2-1.3) mg/dL AST (17-59) U/L ALT (4-49) U/L Alkaline Phosphatase (38-126) U/L Troponin I (0.000-0.034) ng/mL Total Protein (6.3-8.2) g/dL Albumin (3.5-5.0) g/dL Lipase (23-300) U/L Blood Type Blood Type Confirm O Negative Blood Type Recheck Bld Type Recheck Status Antibody Screen Crossmatch Spec Expiration Date 10/28/24 10/28/24 10/28/24 Range/Units 20:51 20:51 20:55 WBC (3.8-10.6) k/uL RBC (4.30-5.90) m/uL Hgb (13.0-17.5) gm/dL Hct (39.0-53.0) % MCV (80.0-100.0) fL MCH (25.0-35.0) pg MCHC (31.0-37.0) g/dL RDW (11.5-15.5) % Plt Count (150-450) k/uL MPV Neutrophils % % Lymphocytes % % Monocytes % % Eosinophils % % Basophils % % Neutrophils # (1.3-7.7) k/uL Lymphocytes # (1.0-4.8) k/uL Monocytes # (0-1.0) k/uL Eosinophils # (0-0.7) k/uL Basophils # (0-0.2) k/uL PT (10.0-12.5) sec INR (<1.2) APTT (22.0-30.0) sec Sodium 135 L (137-145) mmol/L Potassium 3.8 (3.5-5.1) mmol/L Chloride 103 (98-107) mmol/L Carbon Dioxide 23 (22-30) mmol/L Anion Gap 9 mmol/L BUN 43 H (9-20) mg/dL Creatinine 0.78 (0.66-1.25) mg/dL Est GFR (CKD-EPI)AfAm >90 (>60 ml/min/1.73 sqM) Est GFR (CKD-EPI)NonAf >90 (>60 ml/min/1.73 sqM) Glucose 300 H (74-99) mg/dL Calcium 8.5 (8.4-10.2) mg/dL Magnesium 1.8 (1.6-2.3) mg/dL Total Bilirubin 0.3 (0.2-1.3) mg/dL AST 11 L (17-59) U/L ALT 8 (4-49) U/L Alkaline Phosphatase 50 (38-126) U/L Troponin I <0.012 (0.000-0.034) ng/mL Total Protein 5.3 L (6.3-8.2) g/dL Albumin 3.0 L (3.5-5.0) g/dL Lipase 51 (23-300) U/L Blood Type O Negative Blood Type Confirm Blood Type Recheck No Previous Record Bld Type Recheck Status CABO Indicated Antibody Screen NEGATIVE Crossmatch See Detail Spec Expiration Date 10/31/2024 - 2354 Critical Care Time Critical Care Time: Yes Total Critical Care Time: 31 Disposition Clinical Impression: Lower gastrointestinal hemorrhage, Anemia Disposition: ADMITTED IP TO THIS HOSP Is patient prescribed a controlled substance at d/c from ED?: No Time of Disposition: 21:40
[2024-10-28] MEDS: SODIUM CHLORIDE 0.9% 1,000 ML IV STA (20:42)
[2024-10-28] MEDS: PANTOPRAZOLE 40 MG/10 ML VIAL IVP STA (20:50)
[2024-10-28] MEDS: ONDANSETRON 4 MG/2 ML VIAL IVP STA (20:50)
[2024-10-28 21:03] LABS: Basophils % (A) 0 %; Eosinophils # (A) 0.1 k/uL (0-0.7); Eosinophils % (A) 1 %; HCT 28.1 % (39.0-53.0); HGB 9.8 gm/dL (13.0-17.5); Lymphocytes # (A) 2.4 k/uL (1.0-4.8); Lymphocytes % (A) 19 %; MCH 31.3 pg (25.0-35.0); MCHC 34.7 g/dL (31.0-37.0); MCV 90.2 fL (80.0-100.0); Mean Platelet Volume 8.1; Monocytes # (A) 0.5 k/uL (0-1.0); Monocytes % (A) 4 %; Neutrophils # (A) 9.1 k/uL (1.3-7.7); Neutrophils % (A) 74 %; Platelet Count 323 k/uL (150-450); RBC 3.12 m/uL (4.30-5.90); RDW 13.9 % (11.5-15.5); WBC 12.3 k/uL (3.8-10.6)
[2024-10-28 21:17] LABS: ALT 8 U/L (4-49); AST 11 U/L (17-59); African American GFR (CKD) >90 (>60 ml/min/1.73 sqM); Alkaline Phosphatase 50 U/L (38-126); Anion Gap 9 mmol/L; Blood Urea Nitrogen 43 mg/dL (9-20); Calcium 8.5 mg/dL (8.4-10.2); Carbon Dioxide 23 mmol/L (22-30); Chloride 103 mmol/L (98-107); Glucose 300 mg/dL (74-99); Lipase 51 U/L (23-300); Magnesium 1.8 mg/dL (1.6-2.3); Non-African American GFR(CKD) >90 (>60 ml/min/1.73 sqM); Potassium 3.8 mmol/L (3.5-5.1); Sodium 135 mmol/L (137-145); Total Bilirubin 0.3 mg/dL (0.2-1.3); Total Protein 5.3 g/dL (6.3-8.2)
[2024-10-28 21:20] LABS: Partial Thromboplastin Time 22.2 sec (22.0-30.0); Prothrombin Time 11.1 sec (10.0-12.5)
[2024-10-28] MEDS ORDERED: NALOXONE 0.4 MG/ML 1 ML VIAL IV PRN (21:39)
[2024-10-28] MEDS ORDERED: MORPHINE SULFATE 4 MG/ML SYRINGE IV PRN (21:40)
[2024-10-28] MEDS ORDERED: ONDANSETRON 4 MG/2 ML VIAL IVP PRN (21:40)
[2024-10-28] MEDS: SODIUM CHLORIDE 0.9% 1,000 ML IV SCH (21:51)
[2024-10-29] MEDS: ONDANSETRON 4 MG/2 ML VIAL IVP STA (00:10)
[2024-10-29] MEDS ORDERED: NALOXONE 0.4 MG/ML 1 ML VIAL IV PRN (00:24)
[2024-10-29] MEDS: TRANEXAMIC ACID 1,000 MG in SODIUM CHLORIDE 0.9% 250 ML IV ONE (00:40)
--- NOTE | 2024-10-29 00:57 | P.HPIM ---
History of Present Illness H&P Date: 10/28/24 Patient is a 69-year-old male with past medical history of hypertension, diabetes (A1c of 7.7 last year), chronic back pain, and depression presents to the ED with chief complaint of bloody stool. Patient states this started yesterday and his stool has been bright red with some clots. He reports 1 episode yesterday and 1 episode in the ambulance today. Patient reports he has had 2 prior episodes of GI bleeding 1 more than 20 years ago and the other maybe 2 to 3 years. Patient states that he underwent cauterization. Patient denies any follow-up with GI or other specialists. Patient reports history of chronic back pain and patient states that in the last week the Percocet has not been hel ping and he has been taking 3 extra strength Tylenol and 6 Motrin in addition. Patient denies any abdominal pain, chest pain, shortness of breath, nausea, vomiting, fevers, or chills. Patient denies any use of of blood thinners. During encounter, patient is currently being transfused and stated that he felt lightheaded and nauseous. A dose of Zofran was administered. Vitals on admission temperature 98.2, pulse rate 79 bpm, respiratory rate 18, blood pressure 126/72, O2 saturation 100% on room air Review of systems: Pertinent positives and negatives as discussed in HPI, a complete review of systems was performed and all other systems are negative. Allergies: NKDA PCP: Dr. Blas Lamas Social history: Tobacco: Current Alcohol: None Recreational drugs: None Travel: None Sick contacts: None Physical examination: Vital signs reviewed and stable General: nontoxic, no distress, appears at stated age Derm: warm, dry, intact Head: atraumatic, normocephalic, symmetric Eyes: anicteric sclera Mouth: no lip lesion, mucus membranes moist Cardiovascular: S1 S2 reg, no murmur Lungs: CTA bilateral, no rhonchi, no rales, no accessory muscle use Abdominal: soft, non-tender to palpation, nondistended Extremities: No cyanosis, clubbing, or pedal edema. Neuro: Alert, Oriented to person, time and place, Gross neurological examination did not reveal any focal deficits. Cranial nerves II to XII grossly intact. Bilateral upper and lower extremity muscle strength intact and sensation intact. Psych: well appearing, appropriate affect Labs on admission show WBCs 12.3, hemoglobin 9.8, MCV 90.2, platelets 323. PT 11.1, INR 1, PTT 22.2. Sodium 135, potassium 3.8, chloride 103, bicarb 23, BUN 43, creatinine 0.78, glucose 300. Calcium 8.5. Magnesium 1.8. Troponin negative. Lipase 51. Assessment/Plan: Patient is a 69-year-old male with past medical history of hypertension, diabetes, chronic back pain and depression who presented to the ED with chief complaint of bloody stool. Case was discussed with the ED physician and patient will be admitted to internal medicine service for transfusion and further evaluation of acute GI bleed. Active: Acute GI bleed, likely secondary to NSAID use Hemoglobin 9.8 on admission, baseline is closer to 15 Patient was transfused 1 unit of blood in the ER Consult GI Check CBC every 6 hours unremarkable platelets 323. PT 11.1, INR 1, PTT 22.2. Protonix 40 mg po BID Hyperglycemia, diabetic (A1c of 7.7 last year) Glucose checks per [facility] Moderate insulin sliding scale per protocol Obtain A1c Hypoglycemia precautions Elevated BUN, likely secondary to GI bleed Continue to monitor Mild hyponatremia Continue to monitor continue with normal saline 120 cc per hour Chronic: Hypertension continue Zestoretic 2019 Chronic back pain Hold Percocet Morphine 4 mg every 4 hours as needed Continue Flexeril 10 mg 3 times daily Continue Lyrica to 225 mg twice daily Depression Continue Lexapro 20 mg daily F: 0.9% NS at 120 mL/h E: Replete as needed N: Clear liquid diet A: Fall precautions DVT prophylaxis: SCDs due to GI bleeding The patient is admitted with an anticipated more than 2 midnight stay for evaluation of acute GI bleed CODE STATUS: Full code Discussed with: Patient Anticipated discharge place: Pending clinical course I have seen and evaluated the patient today. I Discussed the case with the resident and agree with the resident's findings I edited the assessment and plan as necessary as documented in the resident's note. Past Medical History Past Medical History: Diabetes Mellitus, GI Bleed, Hypertension Additional Past Medical History / Comment(s): Severe GI bleed pt states caused by popcorn kernal requiring blood transfusions, chronic nerve pain in trunk area, chronic cervical and lumbar pain. History of Any Multi-Drug Resistant Organisms: None Reported Past Surgical History: Cholecystectomy, Hernia Repair Additional Past Surgical History / Comment(s): EGD, colonoscopies/benign polypectomy, umbilical hernia repair Past Anesthesia/Blood Transfusion Reactions: No Reported Reaction Additional Past Anesthesia/Blood Transfusion Reaction / Comment(s): Pt has received blood transfusions without reaction. Past Psychological History: Anxiety, Depression Smoking Status: Current every day smoker Past Alcohol Use History: None Reported Past Drug Use History: None Reported - Past Family History Father Family Medical History: Coronary Artery Disease (CAD) Additional Family Medical History / Comment(s): Father is . Mother History Unknown: Yes Additional Family Medical History / Comment(s): Mother committed suicide. Medications and Allergies Home Medications Medication Instructions Recorded Confirmed Type Escitalopram [Lexapro] 20 mg PO DAILY 09/06/22 01/25/24 History Pregabalin 225 mg PO BID 09/06/22 01/25/24 History oxyCODONE-APAP 5-325MG [Percocet 1 tab PO TID PRN 09/06/22 01/25/24 History 5-325 mg] Cyclobenzaprine [Flexeril] 10 mg PO TID PRN #15 tab 01/25/24 Rx Lidocaine 4% Patch 1 patch TOPICAL DAILY #7 patch 01/25/24 Rx Lisinopril-Hctz 20-25 mg 1 tab PO DAILY 01/25/24 01/25/24 History [Zestoretic 20-25] Pantoprazole [Protonix] 40 mg PO DAILY 01/25/24 01/25/24 History rOPINIRole HCL [Requip] 0.5 mg PO DAILY PRN 01/25/24 01/25/24 History Allergies Allergy/AdvReac Type Severity Reaction Status Date / Time No Known Allergies Allergy Verified 10/28/24 20:38 Physical Exam Vitals: Vital Signs Temp Pulse Resp BP Pulse Ox 10/28/24 23:20 98.1 F 72 17 139/62 98 10/28/24 23:00 98.2 F 73 17 129/62 97 10/28/24 22:51 98.3 F 75 17 129/64 96 10/28/24 20:33 98.2 F 79 18 126/72 100 Intake and Output 10/28/24 10/28/24 10/29/24 14:59 22:59 06:59 Intake Total 0 Balance 0 Intake: Blood Product 0 Rc As-1 Unit 0 [id number] Other: Weight 121.563 kg Results CBC & Chem 7: 10/28/24 20:51 10/28/24 20:51 Labs: Abnormal Lab Results - Last 24 Hours (Table) 10/28/24 10/28/24 10/28/24 Range/Units 20:51 20:51 20:55 WBC 12.3 H (3.8-10.6) k/uL RBC 3.12 L (4.30-5.90) m/uL Hgb 9.8 L (13.0-17.5) gm/dL Hct 28.1 L (39.0-53.0) % Neutrophils # 9.1 H (1.3-7.7) k/uL Sodium 135 L (137-145) mmol/L BUN 43 H (9-20) mg/dL Glucose 300 H (74-99) mg/dL AST 11 L (17-59) U/L Total Protein 5.3 L (6.3-8.2) g/dL Albumin 3.0 L (3.5-5.0) g/dL Crossmatch See Detail
[2024-10-29] MEDS ORDERED: CYCLOBENZAPRINE 10 MG TAB PO PRN (01:11)
[2024-10-29] MEDS ORDERED: DEXTROSE 50% SYRINGE 50 ML IVP PRN ×2 (01:15)
[2024-10-29] MEDS: SODIUM CHLORIDE 0.9% 1,000 ML IV SCH (01:36)
[2024-10-29 02:21] LABS: Glucose,Whole Blood 337 mg/dL (70-110)
[2024-10-29] MEDS: NOREPINEPHRINE 4 MG in SODIUM CHLORIDE 0.9% 250 ML IV SCH (02:43)
[2024-10-29] MEDS: TRANEXAMIC 1,000 MG/100ML-NACL 1,000 MG in SALINE 1 100ML.BAG IV STA (02:44)
[2024-10-29 03:01] VITALS: TEMP 97.5
[2024-10-29] MEDS ORDERED: ETOMIDATE 2 MG/ML 10 ML VIAL ONE (03:30)
[2024-10-29] MEDS ORDERED: SUCCINYLCHOLINE CHLORIDE 200 MG/10 ML VIAL IV ONE (03:30)
[2024-10-29] MEDS ORDERED: PHENYLEPHRINE 10 MG/ML VIAL ONE (03:30)
[2024-10-29] MEDS ORDERED: ROCURONIUM 10 MG/ML (5 ML VIAL) IV ONE ×2 (03:30→05:33)
[2024-10-29] MEDS ORDERED: PROPOFOL 10 MG/ML 20 ML VIAL IV ONE (03:30)
[2024-10-29] MEDS: CALCIUM GLUCONATE IN NACL 1 GM in SALINE 1 100ML.BAG IVPB ONE (03:50)
[2024-10-29] MEDS: EPINEPHrine 10 ML SYRINGE (0.1 MG/ML) MISCELLANE ONE (03:50)
[2024-10-29 04:13] LABS: INR 1.2 (<1.2); Partial Thromboplastin Time 24.3 sec (22.0-30.0); Prothrombin Time 12.7 sec (10.0-12.5)
[2024-10-29 04:22] LABS: Ionized Calcium 4.3 mg/dL (4.5-5.3)
--- NOTE | 2024-10-29 04:29 | P.PCN ---
Date of Procedure: 10/29/24 Procedure(s) Performed: BRIEF HISTORY: Patient is a 69-year-old, pleasant, white male admitted to hospital when he presented with multiple episodes of black tarry stools that started yesterday evening. Subsequently while he was in the emergency room he had couple of episodes of hematemesis. Initial hemoglobin was 9.5 g/dL. Patient has been hemodynamically unstable and received total of 5 units of PRBC transfusion so far. Repeat CBC still pending. He is scheduled for an upper endoscopy on an emergency basis at the bedside in the ICU to evaluate further.. PROCEDURE PERFORMED: Esophagogastroduodenoscopy with injection epinephrine and Endo Clip placement. PREOPERATIVE DIAGNOSIS: Acute upper GI bleed. General anesthesia PROCEDURE: After informed consent was obtained, the patient was brought into the endoscopy unit. General anesthesia was administered by Anesthesia under continuous monitoring. Initially the Olympus GIF-140 video endoscope was inserted into the mouth. Esophagus intubated without any difficulty. It was gradually advanced into the stomach and duodenum and carefully examined. There were large clots noted in the fundus of the stomach that was somewhat irrigated. The scope was then gradually advanced into the duodenum. In the bulb of the duodenum there was a large adherent clot identified. Irrigation was performed. And upon careful examination there was a adherent clot along the duodenal sweep with active oozing from the base of the ulcer. At this time I proceeded with injecting epinephrine a total of 20 cc was injected at the base of the ulcer where there was oozing identified. Despite this I was not able to achieve any hemostasis. At this time I proceeded with Endo Clip basement and total of 3 clips were placed though actual site of bleeding could not be adequately visualized. 3 clips were placed blindly in the vicinity of GI bleed but despite this adequate hemostasis could not be achieved.. The scope at this time was withdrawn to the stomach, adequately insufflated with air, and upon careful examination the visualized portions of the, mucosa of the antrum, body, cardia and the fundus appeared normal. The scope was then withdrawn into the esophagus. The GE junction was located at 39 cm from the incisors. The esophagus appeared normal. No esophageal varices seen. The patient tolerated the procedure well though he remains in a critical condition. IMPRESSION: 1. Large duodenal ulcer along the duodenal sweep with an adherent clot and active bleeding status post injection epinephrine followed by Endo Clip placement and unable to obtain hemostasis. 2. Large clots in the fundus of the stomach. RECOMMENDATIONS: The findings of this examination were discussed with Dr. Osei, surgeon on-call, for surgical evaluation. In the meantime continue with resuscitation with fluids and blood products. Continue with IV Protonix. Monitor CBC.
--- NOTE | 2024-10-29 04:35 | P.CONS ---
History of Present Illness - Reason for Consult Consult date: 10/29/24 - Chief Complaint Acute UGI bleed - History of Present Illness Patient is a 69-year-old white male Emergency room complaining of black tarry stools for the last 2 days duration. Denies any abdominal pain. No nausea vomiting. He felt somewhat lightheaded and weak and came to the emergency room and apparently in the ER he had 2 episodes of black tarry stools. He is initial hemoglobin was 9.8 g/dL. Patient has been taking Motrin for severe back pain for the last few months duration. He has prior history of GI bleed and according to the patient the last 1 was approximately 2 or 3 years ago but he cannot provide any details. While in the ER he had 2 episodes of hematemesis of approximately 200 cc of fresh blood. He denies any alcohol use. No history of chronic liver disease. He became somewhat hemodynamically unstable and he received 2 years of PRBC transfusion while in the intensive care unit. Started on IV Protonix 40 mg every 12 hours. Labs revealed normal platelets. PT/INR is within normal limits. Hemoglobin is 9.3. Review of Systems Cardiopulmonary no chest pain or shortness of breath Genitourinary no dysuria hematuria Muscular skeletal's chronic severe back pain Neurology unremarkable Psychiatry remarkable ENT vision unremarkable Constitutional no recent weight loss no fever chills night sweats GI as mentioned above Past Medical History Past Medical History: Diabetes Mellitus, GI Bleed, Hypertension Additional Past Medical History / Comment(s): Severe GI bleed pt states caused by popcorn kernal requiring blood transfusions, chronic nerve pain in trunk area, chronic cervical and lumbar pain. History of Any Multi-Drug Resistant Organisms: None Reported Past Surgical History: Cholecystectomy, Hernia Repair Additional Past Surgical History / Comment(s): EGD, colonoscopies/benign polypectomy, umbilical hernia repair Past Anesthesia/Blood Transfusion Reactions: No Reported Reaction Additional Past Anesthesia/Blood Transfusion Reaction / Comm: Pt has received blood transfusions without reaction. Past Psychological History: Anxiety, Depression Smoking Status: Current every day smoker Past Alcohol Use History: None Reported Past Drug Use History: None Reported - Past Family History Father Family Medical History: Coronary Artery Disease (CAD) Additional Family Medical History / Comment(s): Father is . Mother History Unknown: Yes Additional Family Medical History / Comment(s): Mother committed suicide. Medications and Allergies Home Medications Medication Instructions Recorded Confirmed Type Escitalopram [Lexapro] 20 mg PO DAILY 09/06/22 01/25/24 History Pregabalin 225 mg PO BID 09/06/22 01/25/24 History oxyCODONE-APAP 5-325MG [Percocet 1 tab PO TID PRN 09/06/22 01/25/24 History 5-325 mg] Cyclobenzaprine [Flexeril] 10 mg PO TID PRN #15 tab 01/25/24 Rx Lidocaine 4% Patch 1 patch TOPICAL DAILY #7 patch 01/25/24 Rx Lisinopril-Hctz 20-25 mg 1 tab PO DAILY 01/25/24 01/25/24 History [Zestoretic 20-] Pantoprazole [Protonix] 40 mg PO DAILY 01/25/24 01/25/24 History rOPINIRole HCL [Requip] 0.5 mg PO DAILY PRN 01/25/24 01/25/24 History Allergies Allergy/AdvReac Type Severity Reaction Status Date / Time No Known Allergies Allergy Verified 10/28/24 20:38 Physical Exam Vitals: Vital Signs Temp Pulse Resp BP Pulse Ox FiO2 10/29/24 03:57 110 H 62/46 10/29/24 03:48 105 H 12 81/54 10/29/24 03:46 101 H 18 110/96 10/29/24 03:44 100 10/29/24 03:39 98 107/75 10/29/24 03:26 92 18 109/98 10/29/24 03:16 99 20 114/65 93 L 100 10/29/24 02:48 97.5 F L 101 H 20 85/60 10/29/24 02:45 93 18 106/64 10/29/24 01:46 91 18 84/59 10/29/24 01:26 97.6 F 96 24 94/74 96 10/29/24 01:25 97.6 F 94 23 95/63 96 10/29/24 01:16 98.6 F 94 24 102/60 99 10/29/24 01:05 98.6 F 89 24 94/65 98 10/29/24 00:30 97.5 F L 93 24 115/73 98 10/28/24 23:20 98.1 F 72 17 139/62 98 10/28/24 23:00 98.2 F 73 17 129/62 97 10/28/24 22:51 98.3 F 75 17 129/64 96 10/28/24 20:33 98.2 F 79 18 126/72 100 Intake and Output 10/28/24 10/28/24 10/29/24 14:59 22:59 06:59 Intake Total 0 1225.102 Balance 0 1225.102 Intake: Intake, IV Titration 7.102 Amount Norepinephrine 4 mg In 7.102 Sodium Chloride 0.9% 250 ml @ 0.03 MCG/KG/MIN 13. 895 mls/hr IV .[id number] [facility] Rx#:[id number] Blood Product 0 1218 Ffp 24 Pher Acda Cnt2 0 Unit [id number] Rc As-1 Unit 310 [id number] Rc As-1 Unit 0 310 [id number] Rc As-1 Unit 310 [id number] Rc Pheresis 2 As3 Unit 0 [id number] Rc Pheresis As-3 Unit 288 [id number] Other: Weight 121.563 kg HEENT examination unremarkable Contact of a pale, sclera anicteric Oral cavity no lesions Neck no JVD lymph enlargement Chest clear to auscultation Heart regular rate and rhythm Abdomen was soft, nontender nondistended bowel sounds are positive no organomegaly Extremities no pedal edema Neuro alert and oriented x 3 Results CBC & Chem 7: 10/28/24 20:51 10/28/24 20:51 Labs: Abnormal Lab Results - Last 24 Hours (Table) 10/28/24 10/28/24 10/28/24 Range/Units 20:51 20:51 20:55 WBC 12.3 H (3.8-10.6) k/uL RBC 3.12 L (4.30-5.90) m/uL Hgb 9.8 L (13.0-17.5) gm/dL Hct 28.1 L (39.0-53.0) % Neutrophils # 9.1 H (1.3-7.7) k/uL PT (10.0-12.5) sec INR (<1.2) Sodium 135 L (137-145) mmol/L BUN 43 H (9-20) mg/dL Glucose 300 H (74-99) mg/dL POC Glucose (mg/dL) (70-110) mg/dL Ionized Calcium Annita (4.5-5.3) mg/dL AST 11 L (17-59) U/L Total Protein 5.3 L (6.3-8.2) g/dL Albumin 3.0 L (3.5-5.0) g/dL Crossmatch See Detail 10/29/24 10/29/24 10/29/24 Range/Units 02:20 02:56 02:56 WBC (3.8-10.6) k/uL RBC (4.30-5.90) m/uL Hgb (13.0-17.5) gm/dL Hct (39.0-53.0) % Neutrophils # (1.3-7.7) k/uL PT 12.7 H (10.0-12.5) sec INR 1.2 H (<1.2) Sodium (137-145) mmol/L BUN (9-20) mg/dL Glucose (74-99) mg/dL POC Glucose (mg/dL) 337 H (70-110) mg/dL Ionized Calcium Annita 4.3 L (4.5-5.3) mg/dL AST (17-59) U/L Total Protein (6.3-8.2) g/dL Albumin (3.5-5.0) g/dL Crossmatch Assessment and Plan (1) Acute upper gastrointestinal bleeding Narrative/Plan: Patient presented with black tarry stools for the last 2 days associate with 2 episodes of hematemesis while in the emergency room and initial hemoglobin was 9.8 g/dL. He has been hemodynamically unstable and received total of 3 units of PRBC transfusion and tumor to be infused soon. Continues to be hypertensive and started on IV Levophed. He was transferred to the intensive care unit. Current Visit: Yes Status: Acute Code(s): K92.2 - GASTROINTESTINAL HEMORRHAGE, UNSPECIFIED SNOMED Code(s): 66526741 Plan: Recommendations: Continue resuscitation with blood products Will proceed with an upper endoscopy on an emergency basis in the intensive care unit at the bedside I briefly discussed with the patient about the procedure and he is agreeable to it In the meantime continue with IV Protonix 40 mg every 12 hours Monitor CBC and transfuse as needed. He is scheduled to receive 2 more units of PRBC transfusion at the present time. Thank you for this consultation. Will follow with you closely. Time with Patient: Greater than 30
[2024-10-29 04:36] LABS: African American GFR (CKD) >90 (>60 ml/min/1.73 sqM); Anion Gap 9 mmol/L; Blood Urea Nitrogen 39 mg/dL (9-20); Calcium 7.1 mg/dL (8.4-10.2); Carbon Dioxide 16 mmol/L (22-30); Chloride 110 mmol/L (98-107); Glucose 334 mg/dL (74-99); Non-African American GFR(CKD) >90 (>60 ml/min/1.73 sqM); Potassium 3.9 mmol/L (3.5-5.1); Sodium 135 mmol/L (137-145)
[2024-10-29] MEDS: VASOPRESSIN 60 UNIT in SODIUM CHLORIDE 0.9% 150 ML IV SCH (04:58)
[2024-10-29 04:59] LABS: ABG Base Excess -18.6 mmol/L; ABG PCO2 38 mmHg (35-45); ABG TCO2 12 mmol/L (19-24)
[2024-10-29 05:02] LABS: ABG PH 7.05 (7.35-7.45); ABG PO2 >420 mmHg (83-108)
--- NOTE | 2024-10-29 05:02 | XR ---
EXAM: XR Chest, 1 View CLINICAL HISTORY: ITS.REASON XR Reason: Tube placement TECHNIQUE: Frontal view of the chest. COMPARISON: X-ray dated 01/25/2024 FINDINGS: Lungs: Opacification of the left lung base. Pleural space: Small left-sided pleural effusion. No pneumothorax. Heart: Unremarkable. No cardiomegaly. Mediastinum: Unremarkable. Normal mediastinal contour. Bones/joints: Degenerative changes seen in the spine and shoulders. No acute fracture. Tubes, lines and devices: Endotracheal tube is in place with the tip terminating 5 cm from the nasim. Enteric tube is in place with the tip appearing to terminate at the gastroesophageal junction. IMPRESSION: 1. Question of shallow placement of the enteric tube, consider advancement. 2. Left basilar pleural effusion with adjacent atelectasis and underlying pneumonia not excluded.
[2024-10-29 05:03] LABS: ABG HCO3 10 mmol/L (21-25); Allen Test Performed? no
[2024-10-29] MEDS: SODIUM BICARB 8.4% 50 ML SYR (1 MEQ/ML) IV STA (05:05)
--- NOTE | 2024-10-29 05:10 | P.CNPUL ---
History of Present Illness Consult date: 10/29/24 Requesting physician: Lupillo Hutson Reason for consult: other (ICU management; GIB) Chief complaint: Maroon stools History of present illness: I was contacted by Dr. Hutson early this morning, as the patient was having massive GI bleed and was clinically symptomatic. Patient is a 69-year-old male with past medical history significant for hypertension, diabetes mellitus, previous GI bleed. Patient states his most recent colonoscopy was approximately 2 to 3 years ago. He denies anticoagulant/blood thinner use. Denies alcohol use, esophageal varices. Admits Motrin use. Patient is currently being evaluated in the emergency department, he is having massive GI bleeding with maroon stools and clots. Has had 4 BMs so far in the emergency department. He is also having rosana hematemesis. He is reporting some lower abdominal pain/cramping. He has received a total of 2 units of PRBC so far and is receiving 3rd unit currently. Also, is receiving TXA that was ordered by ER provider. Patient is also received a total of 2.5 L fluid crystalloid bolus per nurse at the bedside. Normal Saline continues at 130 mL/h. Patient is tachycardic and blood pressure is hypotensive, we are going to start this patient on norepinephrine. CBC done on admission: WBC count 12.3, hemoglobin 9.8, hematocrit 28.1, platelets 323. Coagulation profile PT 11, INR of 1, APTT 22. CMP: Sodium 135, potassium 3.8, chloride 103, serum bicarb 23, BUN 43, creatinine 0.78, glucose 300. Magnesium 1.8. LFTs not elevated. Total bilirubin 0.3. Troponin less than 0.012. Lipase 51. Dr. Snyder is on for GI coverage, and the endoscopy team is on their way in. Review of Systems Gastrointestinal: Reports as per HPI (ROS limited by critical illness) Past Medical History Past Medical History: Diabetes Mellitus, GI Bleed, Hypertension Additional Past Medical History / Comment(s): Severe GI bleed pt states caused by popcorn kernal requiring blood transfusions, chronic nerve pain in trunk area, chronic cervical and lumbar pain. History of Any Multi-Drug Resistant Organisms: None Reported Past Surgical History: Cholecystectomy, Hernia Repair Additional Past Surgical History / Comment(s): EGD, colonoscopies/benign doc ypectomy, umbilical hernia repair Past Anesthesia/Blood Transfusion Reactions: No Reported Reaction Additional Past Anesthesia/Blood Transfusion Reaction / Comment(s): Pt has received blood transfusions without reaction. Past Psychological History: Anxiety, Depression Smoking Status: Current every day smoker Past Alcohol Use History: None Reported Past Drug Use History: None Reported - Past Family History Father Family Medical History: Coronary Artery Disease (CAD) Additional Family Medical History / Comment(s): Father is . Mother History Unknown: Yes Additional Family Medical History / Comment(s): Mother committed suicide. Medications and Allergies Home Medications Medication Instructions Recorded Confirmed Type Escitalopram [Lexapro] 20 mg PO DAILY 09/06/22 01/25/24 History Pregabalin 225 mg PO BID 09/06/22 01/25/24 History oxyCODONE-APAP 5-325MG [Percocet 1 tab PO TID PRN 09/06/22 01/25/24 History 5-325 mg] Cyclobenzaprine [Flexeril] 10 mg PO TID PRN #15 tab 01/25/24 Rx Lidocaine 4% Patch 1 patch TOPICAL DAILY #7 patch 01/25/24 Rx Lisinopril-Hctz 20-25 mg 1 tab PO DAILY 01/25/24 01/25/24 History [Zestoretic 20-25] Pantoprazole [Protonix] 40 mg PO DAILY 01/25/24 01/25/24 History rOPINIRole HCL [Requip] 0.5 mg PO DAILY PRN 01/25/24 01/25/24 History Allergies Allergy/AdvReac Type Severity Reaction Status Date / Time No Known Allergies Allergy Verified 10/28/24 20:38 Physical Exam Vitals: Vital Signs Temp Pulse Resp BP Pulse Ox 10/29/24 01:46 91 18 84/59 10/29/24 01:26 97.6 F 96 24 94/74 96 10/29/24 01:25 97.6 F 94 23 95/63 96 10/29/24 01:16 98.6 F 94 24 102/60 99 10/29/24 01:05 98.6 F 89 24 94/65 98 10/29/24 00:30 97.5 F L 93 24 115/73 98 10/28/24 23:20 98.1 F 72 17 139/62 98 10/28/24 23:00 98.2 F 73 17 129/62 97 01/20/25 22:51 98.3 F 75 17 129/64 96 10/28/24 20:33 98.2 F 79 18 126/72 100 Intake and Output 10/28/24 10/28/24 10/29/24 14:59 22:59 06:59 Intake Total 0 310 Balance 0 310 Intake: Blood Product 0 310 Rc As-1 Unit 0 [id number] Rc As-1 Unit 0 310 [id number] Rc Pheresis As-3 Unit 0 [id number] Other: Weight 121.563 kg GENERAL EXAM: Distressed, 69-year-old male, laying on his left side, copious am ounts of maroon stool with clots. Also, actively vomiting bright red blood. HEAD: Normocephalic and atraumatic EYES: Normal reaction of pupils, equal size. NOSE: Clear with pink turbinates. THROAT: No erythema or exudates. NECK: No masses, no JVD. CHEST: No chest wall deformity. LUNGS: Equal air entry with no crackles, wheeze, rhonchi or dullness. On room air. No conversational dyspnea or accessory muscle use.. CVS: S1 and S2 normal with no audible murmur, regular rhythm. No extra heart sounds ABDOMEN: No hepatosplenomegaly, active bowel sounds, no guarding or rigidity. SPINE: No scoliosis or deformity SKIN: Generalized pallor CENTRAL NERVOUS SYSTEM: No focal deficits, tone is normal in all 4 extremities. EXTREMITIES: There is no peripheral edema, clubbing, or cyanosis. Peripheral pu lses are intact. Results - Laboratory Findings CBC and BMP: 10/28/24 20:51 10/29/24 02:56 PT/INR, D-dimer PT 11.1 sec (10.0-12.5) 10/28/24 20:51 INR 1.0 (<1.2) 10/28/24 20:51 Abnormal lab findings: Abnormal Labs 10/28/24 10/28/24 10/28/24 20:51 20:51 20:55 WBC 12.3 H RBC 3.12 L Hgb 9.8 L Hct 28.1 L Neutrophils # 9.1 H Sodium 135 L BUN 43 H Glucose 300 H POC Glucose (mg/dL) AST 11 L Total Protein 5.3 L Albumin 3.0 L Crossmatch See Detail 10/29/24 02:20 WBC RBC Hgb Hct Neutrophils # Sodium BUN Glucose POC Glucose (mg/dL) 337 H AST Total Protein Albumin Crossmatch Assessment and Plan Assessment: Active GI hemorrhage, currently having copious amounts of maroon stool with clots and hematemesis. Status post 3 units PRBCs so far. Also, TXA is infusing that was ordered in the ED. Dr. Snyder was paged, and endoscopy team is on their way in. Symptomatic anemia, secondary to above Hypotension and hemorrhagic shock, currently requiring vasopressors Rosana hematemesis Hypertension History of GI bleed Plan: Patient was transferred to the intensive care unit. Continues to have active GI bleed. We did speak to Dr. Snyder, who is on-call, and the endoscopy team is on their way in Nasogastric tube was also inserted for gastric decompression. Patient continues to vomit around enteric tube. Patient will be intubated by anesthesia for airway protection Patient is status post 3 units PRBCs and was also given TXA in the ED. Continues to have massive hemorrhaging, recommend an additional 2 units, 1 FFP, 1 g calcium gluconate. Add ventilator order set. Continue IV maintenance fluids Repeat labs Protonix previously added 40 mg twice daily Prognosis is guarded I have personally seen and examined the patient, performed the documentation and the assessment and plan as written. Number of minutes spent on the visit:20 This dictation was produced using [employer] dictation software please excuse grammatical errors. Time with Patient: Greater than 30
[2024-10-29 05:16] LABS: Glucose,Whole Blood 392 mg/dL (70-110)
--- NOTE | 2024-10-29 05:17 | P.PCN ---
Date of Procedure: 10/29/24 Preoperative Diagnosis: Hemorrhagic shock Postoperative Diagnosis: Hemorrhagic shock Procedure(s) Performed: Insertion of a left brachial arterial line Indications for Procedure: Hemodynamic monitoring and frequent blood draws Description of Procedure: Informed consent was obtained, and a procedural timeout was performed . The patient was placed in supine position. The left brachial region was prepared in a sterile fashion, and a sterile drape was applied. The left brachial artery was palpated, easily cannulated, and a guidewire was placed. A Cook catheter was inserted over the guidewire, and the guidewire was removed. There was good arterial blood flow, good arterial waveform, and no complications. The line was secured with using a 3-0 silk suture.
[2024-10-29 05:31] LABS: Basophils % (A) 0 %; Eosinophils % (A) 0 %; Hypochromasia Marked; Lymphocytes # (A) 1.8 k/uL (1.0-4.8); Lymphocytes % (A) 13 %; MCHC 32.4 g/dL (31.0-37.0); Mean Platelet Volume 9.2; Monocytes # (A) 0.5 k/uL (0-1.0); Monocytes % (A) 4 %; Neutrophils # (A) 11.6 k/uL (1.3-7.7); Neutrophils % (A) 83 %; RBC 2.06 m/uL (4.30-5.90); RDW 15.2 % (11.5-15.5); WBC 14.1 k/uL (3.8-10.6)
[2024-10-29] MEDS ORDERED: VASOPRESSIN 20 UNIT/ML 1 ML VIAL ONE (05:33)
[2024-10-29] MEDS ORDERED: EPINEPHrine 10 ML SYRINGE (0.1 MG/ML) ONE ×2 (05:33→07:47)
[2024-10-29] MEDS ORDERED: fentaNYL (PF) 50 MCG/ML 2 ML AMP ONE (05:33)
[2024-10-29] MEDS ORDERED: CALCIUM CHLORIDE 100 MG/ML 10 ML SYRINGE ONE (05:33)
[2024-10-29] MEDS ORDERED: NOREPINEPHRINE 1 MG/ML 4 ML VIAL IV ONE (05:33)
[2024-10-29] MEDS: SODIUM CHLORIDE 0.9% 1,000 ML IV ONE ×2 (05:33)
[2024-10-29] MEDS ORDERED: MIDAZOLAM 2 MG/2 ML VIAL ONE (05:33)
[2024-10-29 05:46] LABS: INR 1.5 (<1.2); Partial Thromboplastin Time 45.1 sec (22.0-30.0)
[2024-10-29 05:51] LABS: HCT 19.7 % (39.0-53.0); HGB 6.4 gm/dL (13.0-17.5)
[2024-10-29 05:52] LABS: MCV 95.9 fL (80.0-100.0)
[2024-10-29 06:20] LABS: Chloride 110 mmol/L (98-107); Potassium 4.7 mmol/L (3.5-5.1); Sodium 134 mmol/L (137-145)
[2024-10-29 06:21] LABS: ALT 10 U/L (4-49); AST 17 U/L (17-59); African American GFR (CKD) 88 (>60 ml/min/1.73 sqM); Albumin 1.1 g/dL (3.5-5.0); Alkaline Phosphatase <20 U/L (38-126); Anion Gap 16 mmol/L; Blood Urea Nitrogen 34 mg/dL (9-20); Non-African American GFR(CKD) 76 (>60 ml/min/1.73 sqM); Phosphorus 7.3 mg/dL (2.5-4.5); Total Bilirubin 0.5 mg/dL (0.2-1.3); Total Protein 2.4 g/dL (6.3-8.2)
[2024-10-29 06:23] LABS: Calcium 6.3 mg/dL (8.4-10.2); Carbon Dioxide 8 mmol/L (22-30); Glucose 539 mg/dL (74-99)
[2024-10-29 07:12] LABS: Fibrinogen <110 mg/dL (200-500)
--- NOTE | 2024-10-29 07:19 | P.GSCN ---
History of Present Illness Consult date: 10/29/24 Reason for Consult: Bleeding duodenal ulcer History of present illness: This is a 69-year-old male who was admitted through the emergency room with a bleeding duodenal ulcer. Patient underwent EGD by Dr. Garcia this morning around 4:30 in the AM. Patient was found to have a large bleeding duodenal ulcer she was unable to clip the ulcer. I was consulted for possible surgical management. Patient at that time had received 5 units of packed red cells. He was on maxed out Levophed. He is intubated. He was in the ICU. Past Medical History Past Medical History: Diabetes Mellitus, GI Bleed, Hypertension Additional Past Medical History / Comment(s): Severe GI bleed pt states caused by popcorn kernal requiring blood transfusions, chronic nerve pain in trunk area, chronic cervical and lumbar pain. History of Any Multi-Drug Resistant Organisms: None Reported Past Surgical History: Cholecystectomy, Hernia Repair Additional Past Surgical History / Comment(s): EGD, colonoscopies/benign polypectomy, umbilical hernia repair Past Anesthesia/Blood Transfusion Reactions: No Reported Reaction Additional Past Anesthesia/Blood Transfusion Reaction / Comm: Pt has received blood transfusions without reaction. Past Psychological History: Anxiety, Depression Smoking Status: Current every day smoker Past Alcohol Use History: None Reported Past Drug Use History: None Reported - Past Family History Father Family Medical History: Coronary Artery Disease (CAD) Additional Family Medical History / Comment(s): Father is . Mother History Unknown: Yes Additional Family Medical History / Comment(s): Mother committed suicide. Medications and Allergies Home Medications Medication Instructions Recorded Confirmed Type Escitalopram [Lexapro] 20 mg PO DAILY 09/06/22 01/25/24 History Pregabalin 225 mg PO BID 09/06/22 01/25/24 History oxyCODONE-APAP 5-325MG [Percocet 1 tab PO TID PRN 09/06/22 01/25/24 History 5-325 mg] Cyclobenzaprine [Flexeril] 10 mg PO TID PRN #15 tab 01/25/24 Rx Lidocaine 4% Patch 1 patch TOPICAL DAILY #7 patch 01/25/24 Rx Lisinopril-Hctz 20-25 mg 1 tab PO DAILY 01/25/24 01/25/24 History [Zestoretic 20-25] Pantoprazole [Protonix] 40 mg PO DAILY 01/25/24 01/25/24 History rOPINIRole HCL [Requip] 0.5 mg PO DAILY PRN 01/25/24 01/25/24 History Allergies Allergy/AdvReac Type Severity Reaction Status Date / Time No Known Allergies Allergy Verified 10/28/24 20:38 Surgical - Exam Vital Signs Temp Pulse Resp BP Pulse Ox 98.2 F 79 18 126/72 100 10/28/24 20:33 10/28/24 20:33 10/28/24 20:33 10/28/24 20:33 10/28/24 20:33 - General Patient intubated. Patient is hypotensive with systolic blood pressures in the 70 range - Respiratory Intubated - Abdomen Abdomen: soft Results - Labs 10/29/24 06:00 10/29/24 04:56 Abnormal Lab Results - Last 24 Hours (Table) 10/28/24 10/28/24 10/28/24 Range/Units 20:51 20:51 20:55 WBC 12.3 H (3.8-10.6) k/uL RBC 3.12 L (4.30-5.90) m/uL Hgb 9.8 L (13.0-17.5) gm/dL Hct 28.1 L (39.0-53.0) % Plt Count (150-450) k/uL Neutrophils # 9.1 H (1.3-7.7) k/uL PT (10.0-12.5) sec INR (<1.2) APTT (22.0-30.0) sec Fibrinogen (200-500) mg/dL ABG pH (7.35-7.45) ABG pO2 (83-108) mmHg ABG HCO3 (21-25) mmol/L ABG Total CO2 (19-24) mmol/L ABG O2 Saturation (94-97) % Hemoglobin (13.0-17.5) gm/dL Sodium 135 L (137-145) mmol/L Chloride (98-107) mmol/L Carbon Dioxide (22-30) mmol/L BUN 43 H (9-20) mg/dL Glucose 300 H (74-99) mg/dL POC Glucose (mg/dL) (70-110) mg/dL Calcium (8.4-10.2) mg/dL Ionized Calcium Annita (4.5-5.3) mg/dL Phosphorus (2.5-4.5) mg/dL AST 11 L (17-59) U/L Alkaline Phosphatase (38-126) U/L Total Protein 5.3 L (6.3-8.2) g/dL Albumin 3.0 L (3.5-5.0) g/dL Crossmatch See Detail 10/29/24 10/29/24 10/29/24 Range/Units 02:20 02:56 02:56 WBC (3.8-10.6) k/uL RBC (4.30-5.90) m/uL Hgb (13.0-17.5) gm/dL Hct (39.0-53.0) % Plt Count (150-450) k/uL Neutrophils # (1.3-7.7) k/uL PT 12.7 H (10.0-12.5) sec INR 1.2 H (<1.2) APTT (22.0-30.0) sec Fibrinogen (200-500) mg/dL ABG pH (7.35-7.45) ABG pO2 (83-108) mmHg ABG HCO3 (21-25) mmol/L ABG Total CO2 (19-24) mmol/L ABG O2 Saturation (94-97) % Hemoglobin (13.0-17.5) gm/dL Sodium 135 L (137-145) mmol/L Chloride 110 H (98-107) mmol/L Carbon Dioxide 16 L (22-30) mmol/L BUN 39 H (9-20) mg/dL Glucose 334 H (74-99) mg/dL POC Glucose (mg/dL) 337 H (70-110) mg/dL Calcium 7.1 L (8.4-10.2) mg/dL Ionized Calcium Annita 4.3 L (4.5-5.3) mg/dL Phosphorus (2.5-4.5) mg/dL AST (17-59) U/L Alkaline Phosphatase (38-126) U/L Total Protein (6.3-8.2) g/dL Albumin (3.5-5.0) g/dL Crossmatch 10/29/24 10/29/24 10/29/24 Range/Units 04:56 04:56 04:56 WBC (3.8-10.6) k/uL RBC (4.30-5.90) m/uL Hgb (13.0-17.5) gm/dL Hct (39.0-53.0) % Plt Count (150-450) k/uL Neutrophils # (1.3-7.7) k/uL PT 16.0 H (10.0-12.5) sec INR 1.5 H (<1.2) APTT 45.1 H (22.0-30.0) sec Fibrinogen <110 L (200-500) mg/dL ABG pH 7.05 L* (7.35-7.45) ABG pO2 >420 H (83-108) mmHg ABG HCO3 10 L* (21-25) mmol/L ABG Total CO2 12 L (19-24) mmol/L ABG O2 Saturation 100.0 H (94-97) % Hemoglobin 6.4 L* (13.0-17.5) gm/dL Sodium 134 L (137-145) mmol/L Chloride 110 H (98-107) mmol/L Carbon Dioxide 8 L* (22-30) mmol/L BUN 34 H (9-20) mg/dL Glucose 539 H* (74-99) mg/dL POC Glucose (mg/dL) (70-110) mg/dL Calcium 6.3 L* (8.4-10.2) mg/dL Ionized Calcium Annita (4.5-5.3) mg/dL Phosphorus 7.3 H (2.5-4.5) mg/dL AST (17-59) U/L Alkaline Phosphatase <20 L (38-126) U/L Total Protein 2.4 L (6.3-8.2) g/dL Albumin 1.1 L (3.5-5.0) g/dL Crossmatch 10/29/24 10/29/24 10/29/24 Range/Units 05:14 06:00 06:40 WBC 14.1 H (3.8-10.6) k/uL RBC 2.06 L (4.30-5.90) m/uL Hgb 6.4 L* D (13.0-17.5) gm/dL Hct 19.7 L* (39.0-53.0) % Plt Count 114 L D (150-450) k/uL Neutrophils # (1.3-7.7) k/uL PT (10.0-12.5) sec INR (<1.2) APTT (22.0-30.0) sec Fibrinogen (200-500) mg/dL ABG pH (7.35-7.45) ABG pO2 (83-108) mmHg ABG HCO3 (21-25) mmol/L ABG Total CO2 (19-24) mmol/L ABG O2 Saturation (94-97) % Hemoglobin (13.0-17.5) gm/dL Sodium (137-145) mmol/L Chloride (98-107) mmol/L Carbon Dioxide (22-30) mmol/L BUN (9-20) mg/dL Glucose (74-99) mg/dL POC Glucose (mg/dL) 392 H (70-110) mg/dL Calcium (8.4-10.2) mg/dL Ionized Calcium Annita 4.3 L (4.5-5.3) mg/dL Phosphorus (2.5-4.5) mg/dL AST (17-59) U/L Alkaline Phosphatase (38-126) U/L Total Protein (6.3-8.2) g/dL Albumin (3.5-5.0) g/dL Crossmatch Diabetes panel 10/28/24 10/29/24 10/29/24 Range/Units 20:51 02:56 04:56 Sodium 135 L 135 L 134 L (137-145) mmol/L Potassium 3.8 3.9 4.7 (3.5-5.1) mmol/L Chloride 103 110 H 110 H (98-107) mmol/L Carbon Dioxide 23 16 L 8 L* (22-30) mmol/L BUN 43 H 39 H 34 H (9-20) mg/dL Creatinine 0.78 0.72 0.99 (0.66-1.25) mg/dL Glucose 300 H 334 H 539 H* (74-99) mg/dL Calcium 8.5 7.1 L 6.3 L* (8.4-10.2) mg/dL AST 11 L 17 (17-59) U/L ALT 8 10 (4-49) U/L Alkaline Phosphatase 50 <20 L (38-126) U/L Total Protein 5.3 L 2.4 L (6.3-8.2) g/dL Albumin 3.0 L 1.1 L (3.5-5.0) g/dL Calcium panel 10/28/24 10/29/24 10/29/24 Range/Units 20:51 02:56 04:56 Calcium 8.5 7.1 L 6.3 L* (8.4-10.2) mg/dL Ionized Calcium Annita 4.3 L (4.5-5.3) mg/dL Phosphorus 7.3 H (2.5-4.5) mg/dL Albumin 3.0 L 1.1 L (3.5-5.0) g/dL 10/29/24 Range/Units 06:40 Calcium (8.4-10.2) mg/dL Ionized Calcium Annita 4.3 L (4.5-5.3) mg/dL Phosphorus (2.5-4.5) mg/dL Albumin (3.5-5.0) g/dL Pituitary panel 10/28/24 10/29/24 10/29/24 Range/Units 20:51 02:56 04:56 Sodium 135 L 135 L 134 L (137-145) mmol/L Potassium 3.8 3.9 4.7 (3.5-5.1) mmol/L Chloride 103 110 H 110 H (98-107) mmol/L Carbon Dioxide 23 16 L 8 L* (22-30) mmol/L BUN 43 H 39 H 34 H (9-20) mg/dL Creatinine 0.78 0.72 0.99 (0.66-1.25) mg/dL Glucose 300 H 334 H 539 H* (74-99) mg/dL Calcium 8.5 7.1 L 6.3 L* (8.4-10.2) mg/dL Adrenal panel 10/28/24 10/29/24 10/29/24 Range/Units 20:51 02:56 04:56 Sodium 135 L 135 L 134 L (137-145) mmol/L Potassium 3.8 3.9 4.7 (3.5-5.1) mmol/L Chloride 103 110 H 110 H (98-107) mmol/L Carbon Dioxide 23 16 L 8 L* (22-30) mmol/L BUN 43 H 39 H 34 H (9-20) mg/dL Creatinine 0.78 0.72 0.99 (0.66-1.25) mg/dL Glucose 300 H 334 H 539 H* (74-99) mg/dL Calcium 8.5 7.1 L 6.3 L* (8.4-10.2) mg/dL Total Bilirubin 0.3 0.5 (0.2-1.3) mg/dL AST 11 L 17 (17-59) U/L ALT 8 10 (4-49) U/L Alkaline Phosphatase 50 <20 L (38-126) U/L Total Protein 5.3 L 2.4 L (6.3-8.2) g/dL Albumin 3.0 L 1.1 L (3.5-5.0) g/dL Assessment and Plan Assessment: Bleeding duodenal ulcer. Patient has received 5 units packed red cells. Patient received 2 more units packed red cells. Patient will be taken the OR for emergent laparotomy and repair of duodenal ulcer. I discussed case with the anesthesiologist and have directed him to call the OR crew immediately.
--- NOTE | 2024-10-29 07:25 | P.OP ---
Date of Procedure: 10/29/24 Preoperative Diagnosis: Bleeding duodenal ulcer Anemia Hypothermia Postoperative Diagnosis: Same Procedure(s) Performed: Exploratory laparotomy Repair of bleeding duodenal ulcer Pyloroplasty Anesthesia: SELWYN Surgeon: Charly Osei Estimated Blood Loss (ml): 75 Pathology: none sent Condition: critical Disposition: ICU Operative Findings: Large based duodenal ulcer with bleeding most likely from gastroduodenal artery Description of Procedure: Patient placed on the operative table in the supine position. He received general anesthesia. Patient was maxed out on Levophed and vasopressor. His temperature was 33 degrees. A midline incision was made. The abs entered. The Bookwalter tract placed the wound. His stomach was visualized. A transverse opening was made across the pylorus is electrocautery. Approximately 1200 cc of blood was removed from the duodenum and stomach. There was pulsatile bleeding seen at the base of duodenal artery. This was compressed with finger compression. At this point anesthesia noted that the patient appeared to be extremely hypotensive and possibly asystolic. The anesthesia department performed CPR and coded the patient for approximately 10 minutes. At this point he retained a blood pressure. The procedure continued. The ulcer base was oversewn with 0 Vicryl suture. The bleeding was able to be controlled. At this point the patient coded again. Anesthesia performed CPR and another medical code for approximately 10 minutes. Patient then had another blood pressure in the 100 range. At this point the abdomen was irrigated. The pyloroplasty ty was closed transversely. Using 2-0 Vicryl and 3-0 Prolene suture. A LENY drain was placed over top of the pyloroplasty. The fascia was closed with looped #1 PDS suture. Skin was closed suzanne. Patient was sent to the ICU in guarded condition.
[2024-10-29] MEDS ORDERED: INSULIN ASPART (NovoLOG) 100 UNIT/ML VIAL SQ SCH (07:30)
[2024-10-29 07:33] LABS: Platelet Count 114 k/uL (150-450)
[2024-10-29 07:35] LABS: Crenated RBC Present; Poikilocytosis (M) Present
--- NOTE | 2024-10-29 07:38 | P.ANPRN ---
Procedure Note - Anesthesia - Invasive Line Right Central Line Time Out Performed: Yes Date of Procedure: 10/29/24 Time of Procedure: 05:18 Location of Patient: OR Preparation: Sterile Prep, Sterile Dressing Central Line Location: Internal Jugular Ultrasound Used: Yes Purpose - Visualization and Identification of Vasculature: Yes Needle Guage: 18 Image Stored and Saved: Yes Narrative: Invasive line placement per sterile protocol utilized.
[2024-10-29] MEDS ORDERED: SODIUM BICARB 8.4% 50 ML SYR (1 MEQ/ML) ONE (07:47)
[2024-10-29] MEDS ORDERED: MORPHINE SULFATE 4 MG/ML SYRINGE IV PRN (07:56)
[2024-10-29] MEDS ORDERED: MORPHINE SULFATE (100 MG/2 ML) 100 MG in SODIUM CHLORIDE 0.9% 100 ML IV SCH (08:00)
[2024-10-29 08:59] VITALS: BP 58/45; PULSE 0; RESP 0
[2024-10-29] MEDS ORDERED: PREGABALIN 100 MG CAP PO SCH (09:00)
[2024-10-29] MEDS ORDERED: PREGABALIN 25 MG CAP PO SCH (09:00)
[2024-10-29] MEDS ORDERED: PANTOPRAZOLE 40 MG/10 ML VIAL IV SCH (09:00)
[2024-10-29] MEDS ORDERED: LISINOPRIL-HCTZ 20-25 MG 1 EACH TAB PO SCH (09:00)
[2024-10-29] MEDS ORDERED: CHLORHEXIDINE GLUCONATE 15 ML CUP MUCOUS MEM SCH (09:00)
[2024-10-29] MEDS ORDERED: ESCITALOPRAM 20 MG TAB PO SCH (09:00)
[2024-10-29 09:46] LABS: ABG HCO3 14 mmol/L (21-25); ABG PCO2 43 mmHg (35-45); ABG PO2 380 mmHg (83-108); ABG TCO2 15 mmol/L (19-24)
[2024-10-29 09:47] LABS: ABG PH 7.11 (7.35-7.45)
[2024-10-29 09:48] LABS: Allen Test Performed? no
--- NOTE | 2024-10-29 11:58 | P.DS ---
Providers Date of admission: 10/28/24 21:41 Expected date of discharge: 10/29/24 Attending physician: Slava Rose MD Consults: 10/28/24 21:40 Consult Physician Routine Consulting Provider: Madeleine Snyder Consult Reason/Comments: gib Do you want consulting provider notified?: Yes 10/29/24 00:24 Consult Physician Stat Consulting Provider: Malachi Montelongo Consult Reason/Comments: gib Do you want consulting provider notified?: Yes 10/29/24 04:07 Consult Physician Stat Consulting Provider: Charly Osei Consult Reason/Comments: GIB Do you want consulting provider notified?: Yes, Notify in am Primary care physician: Blas Lamas [facility] Course: Discharge Diagnosis: Acute upper GI bleed Hypovolemic shock Bleeding duodenal ulcer Cardiac arrest Type 2 diabetes Hyponatremia History of hypertension History of chronic back pain History of depression Hospital Course: 69-year-old male with past medical history of hypertension, diabetes (A1c of 7.7 last year), chronic back pain, and depression presents to the ED with chief complaint of bloody stool. Patient states this started yesterday and his stool has been bright red with some clots. He reports 1 episode yesterday and 1 episode in the ambulance today. Patient reports he has had 2 prior episodes of GI bleeding 1 more than 20 years ago and the other maybe 2 to 3 years. Patient states that he underwent cauterization. Patient denies any follow-up with GI or other specialists. Patient reports history of chronic back pain and patient states that in the last week the Percocet has not been helping and he has been taking 3 extra strength Tylenol and 6 Motrin in addition. Patient denies any abdominal pain, chest pain, shortness of breath, nausea, vomiting, fevers, or chills. Patient denies any use of of blood thinners. During encounter, patient is currently being transfused and stated that he felt lightheaded and nauseous. A dose of Zofran was administered. Vitals on admission temperature 98.2, pulse rate 79 bpm, respiratory rate 18, blood pressure 126/72, O2 saturation 100% on room air. After initial encounter, patient was noted to have large bowel movement of bright red blood with abdominal pain. BPs were also soft in the 80s over 50s and patient also received half liter bolus and an additional 2 units with TXA. Case was discussed with ICU and patient will likely be transferred to the unit for closer management. Protonix 40mg IV BID has been ordered and BP meds will be held. Patient taken for ex lap. About 1200 cc of blood removed from duodenum and stomach, pulsatile bleeding seen at the base of duodenal artery, patient became further hypotensive with a systolic, required 10 minutes of CPR. ROSC achieved. Patient then transferred to medical ICU. This morning patient again had a cardiac arrest. Announced overhead. On my arrival, patient was being resuscitated. Had ventricular fibrillation x 2, was shocked x 2, continue to receive epi boluses, also received bicarb, and amiodarone. Patient's family decided to stop CPR. Patient at 8: 12 on 10/29/2024. Plan - Discharge Summary New Discharge Prescriptions: No Action Pregabalin 225 mg PO BID Escitalopram [Lexapro] 20 mg PO DAILY rOPINIRole HCL [Requip] 0.5 mg PO DAILY PRN PRN Reason: restless legs Lisinopril-Hctz 20-25 mg [Zestoretic 20-25] 1 tab PO DAILY oxyCODONE-APAP 5-325MG [Percocet 5-325 mg] 1 tab PO TID PRN PRN Reason: Pain Pantoprazole [Protonix] 40 mg PO DAILY Cyclobenzaprine [Flexeril] 10 mg PO TID PRN #15 tab PRN Reason: Muscle Spasm Lidocaine 4% Patch 1 patch TOPICAL DAILY #7 patch Discharge Medication List Escitalopram [Lexapro] 20 mg PO DAILY 09/06/22 [History] Pregabalin 225 mg PO BID 09/06/22 [History] oxyCODONE-APAP 5-325MG [Percocet 5-325 mg] 1 tab PO TID PRN 09/06/22 [History] Cyclobenzaprine [Flexeril] 10 mg PO TID PRN #15 tab 01/25/24 [Rx] Lidocaine 4% Patch 1 patch TOPICAL DAILY #7 patch 01/25/24 [Rx] Lisinopril-Hctz 20-25 mg [Zestoretic 20-25] 1 tab PO DAILY 01/25/24 [History] Pantoprazole [Protonix] 40 mg PO DAILY 01/25/24 [History] rOPINIRole HCL [Requip] 0.5 mg PO DAILY PRN 01/25/24 [History] Follow up Appointment(s)/Referral(s): Blas Lamas DO [Primary Care Provider] - 1-2 days
== END 2024-10-29 11:36 | disposition expired | DRG 327 ==
LOC: EC 20:31 → 3SCARD 21:41 → 2SICU 10-29 01:33
PROVIDERS: ADMIT Internal Medicine; ATTEND Internal Medicine
PROC: 5A12012 Performance of Cardiac Output, Single, Manual (ICD-10-PCS; 2024-10-28)
PROC: 30233N1 Transfusion of Nonautologous Red Blood Cells into Peripheral Vein, Percutaneous Approach (ICD-10-PCS; 2024-10-28)
PROC: 0W3P8ZZ Control Bleeding in Gastrointestinal Tract, Via Natural or Artificial Opening Endoscopic (ICD-10-PCS; 2024-10-29)
PROC: 03HY32Z Insertion of Monitoring Device into Upper Artery, Percutaneous Approach (ICD-10-PCS; 2024-10-29)
PROC: 3E0G8GC Introduction of Other Therapeutic Substance into Upper GI, Via Natural or Artificial Opening Endoscopic (ICD-10-PCS; 2024-10-29)
PROC: 4A133B1 Monitoring of Arterial Pressure, Peripheral, Percutaneous Approach (ICD-10-PCS; 2024-10-29)
PROC: 4A133J1 Monitoring of Arterial Pulse, Peripheral, Percutaneous Approach (ICD-10-PCS; 2024-10-29)
PROC: 3E033XZ Introduction of Vasopressor into Peripheral Vein, Percutaneous Approach (ICD-10-PCS; 2024-10-29)
PROC: 02HV33Z Insertion of Infusion Device into Superior Vena Cava, Percutaneous Approach (ICD-10-PCS; 2024-10-29)
PROC: 30233K1 Transfusion of Nonautologous Frozen Plasma into Peripheral Vein, Percutaneous Approach (ICD-10-PCS; 2024-10-29)
PROC: 05H933Z Insertion of Infusion Device into Right Brachial Vein, Percutaneous Approach (ICD-10-PCS; 2024-10-29)
PROC: 0DQ70ZZ Repair Stomach, Pylorus, Open Approach (ICD-10-PCS; principal; 2024-10-29 03:22)
PROC: 0DQ90ZZ Repair Duodenum, Open Approach (ICD-10-PCS; 2024-10-29 03:22)
DX: K26.4 Chronic or unspecified duodenal ulcer with hemorrhage (principal); D62 Acute posthemorrhagic anemia; I46.9 Cardiac arrest, cause unspecified; R57.8 Other shock; I49.01 Ventricular fibrillation; R57.1 Hypovolemic shock; I10 Essential (primary) hypertension; F32.A Depression, unspecified; E11.65 Type 2 diabetes mellitus with hyperglycemia; E87.1 Hypo-osmolality and hyponatremia; F17.200 Nicotine dependence, unspecified, uncomplicated; F41.9 Anxiety disorder, unspecified; G89.29 Other chronic pain; M54.9 Dorsalgia, unspecified; Z79.899 Other long term (current) drug therapy; Z82.49 Family history of ischemic heart disease and other diseases of the circulatory system; Z90.49 Acquired absence of other specified parts of digestive tract; Z87.19 Personal history of other diseases of the digestive system; T39.395A Adverse effect of other nonsteroidal anti-inflammatory drugs [NSAID], initial encounter; X58.XXXA Exposure to other specified factors, initial encounter; Z66 Do not resuscitate; Z51.5 Encounter for palliative care
CPT/HCPCS: 36415; 36430; 43243; 43255; 71045; 80048; 80053; 82330; 82805; 83690; 83735; 84100; 84484; 85025; 85384; 85610; 85730; 86850; 86900; 86901; 86920; 92950; 94002; 96361; 96374; 96375; 96376; 99291